=== PATIENT | female | born 1950 | race Two or more races ===

== ENCOUNTER 2016-11-15 11:07 | Day surgery (SDC) | payer MEDICARE, OTHER ==
[~2016-11-15] VITALS: Ht 152.4 cm; Wt 88.4 kg
[2016-11-15] MEDS ORDERED: NPH SQ (12:39)
[2016-11-15] MEDS ORDERED: LABE100T39 PO (12:39)
[2016-11-15] MEDS ORDERED: HYDR-3671 PO (12:39)
[2016-11-15] MEDS ORDERED: LOSA1TAB21 PO (12:39)
[2016-11-15] MEDS ORDERED: LORA1TAB PO (12:39)
[2016-11-15] MEDS ORDERED: OMEP20CA16 PO (12:39)
[2016-11-15] MEDS ORDERED: [UNRECOGNIZED DRUG - CODE] MC (12:39)
[2016-11-15] MEDS ORDERED: SMV40T PO (12:39)
[2016-11-15 13:26] VITALS: BP 193/81; PULSE 60; RESP 13
[2016-11-15 13:40] LABS: POTASSIUM 4.8 mmol/L (3.5-5.1)
[2016-11-15 13:43] LABS: CREATININE 6.65 mg/dl (0.44-1.00)
[2016-11-15 13:44] LABS: CALCIUM 9.8 mg/dl (8.4-10.2)
[2016-11-15] MEDS ORDERED: PROPOFOL 20 ML ONE ×2 (14:01→14:41)
[2016-11-15] MEDS ORDERED: MIDAZOLAM 1 MG/ML 2 ML INJ ONE (14:01)
[2016-11-15] MEDS ORDERED: LIDOCAINE 2% (SDV) 5 ML INJ ONE (14:01)
[2016-11-15 15:04] VITALS: BP 147/66; PULSE 59; RESP 18
--- NOTE | 2016-11-15 15:24 | GILP ---
DATE OF PROCEDURE: 11/15/2016 NAME OF PROCEDURES: Colonoscopy and biopsy. SURGEON: Misty Cifuentes MD PREOPERATIVE DIAGNOSES: 1. Change in bowel habit. 2. Screening colonoscopy. POSTOPERATIVE DIAGNOSES: 1. Colonoscopy all the way to the cecum. 2. Three small polyps, 2 from the transverse colon and one from the sigmoid colon were removed usin g the biopsy forceps. 3. Diverticulosis of the colon. 4. Internal hemorrhoids. INDICATION FOR THE PROCEDURE: Ms. Yue Johnson is a 66-year-old female patient who notice d a change in the bowel habit. She never had screening colonoscopy. The procedure and possible complications are well explained to the patient. She understood and cons ented to the procedure. DESCRIPTION OF PROCEDURE: Under the influence of anesthesia, the colonoscope was carefully introduc ed in the rectum and under direct vision, it was advanced all the way to the cecum. FINDINGS: The patient had 3 colon polyps, 2 in the transverse colon and one in the sigmoid colon an d they were removed using the biopsy forceps. The patient was noted to have diverticulosis of the c olon and internal hemorrhoids. She tolerated the procedure very well and there was no complication from the procedure. At the end of the procedure, she was awake with stable vital signs and she was discharged home to the care of h er family. IMPRESSION: 1. Colonoscopy all the way to the cecum. 2. Three colon polyps, 2 from the transverse colon and one from the sigmoid colon were removed usin g the biopsy forceps. 3. Diverticulosis of the colon. 4. Internal hemorrhoids. PLAN: Await histopathology report. Followup colonoscopy in 5 years. Dictated By: MISTY MEIER/MONICA Conf#: [id number] DID#: [id number]
--- NOTE | 2016-11-20 18:08 | RADRPT ---
Vent Rate: 68 bpm RR Interval: 0 msec ME Interval: 162 msec QRS Duration: 82 msec QT Interval: 456 msec QTC Interval: 484 msec P-R-T [place]: 67 - 28 - 74 degrees Normal sinus rhythm Normal ECG Electronically Signed By: Ty Rodriguez [id number]
== END 2016-11-15 15:57 | disposition home or self-care (01) ==
LOC: GIL 11:07
PROVIDERS: ATTEND Internal Medicine Gastroenterology
DX: R19.4 Change in bowel habit (principal); D12.3 Benign neoplasm of transverse colon; D12.5 Benign neoplasm of sigmoid colon; K57.90 Diverticulosis of intestine, part unspecified, without perforation or abscess without bleeding; K64.8 Other hemorrhoids; E78.5 Hyperlipidemia, unspecified; E66.01 Morbid (severe) obesity due to excess calories; Z68.38 Body mass index [BMI] 38.0-38.9, adult; I10 Essential (primary) hypertension; E11.9 Type 2 diabetes mellitus without complications
CPT/HCPCS: 45380; 80048; 93005; J2250; 88305

== ENCOUNTER 2018-11-06 07:22 | Observation (INO) | payer MEDICARE, OTHER ==
[~2018-11-06] VITALS: Ht 160 cm; Wt 90.8 kg
[2018-11-06] VITALS (28 sets, daily range): BP systolic 66–131; BP diastolic 30–80; PULSE 85–96; RESP 16–28; Ht 160 cm; Wt 90.8 kg
[~2018-11-06 07:22] MED LIST: CEFAZOLIN 2 GM/50 ML (PMX) 50 ML IVPB ONE; HYDR-3671 PO; LABE100T39 PO; LORA1TAB PO; LOSA1TAB28 PO; NPH SQ; OMEP20CA16 PO; SIMV40TA3 PO; SOD CHLORIDE 0.9% 1,000 ML IV SCH; [UNRECOGNIZED DRUG - CODE] MC
[2018-11-06] MEDS ORDERED: hydrALAzine 20 MG INJ IV ONE (08:30)
[2018-11-06] MEDS ORDERED: BUME2TAB2 PO ×2 (10:17→10:19)
[2018-11-06] MEDS ORDERED: CARV6.2579 PO (10:17)
[2018-11-06] MEDS ORDERED: SEVE0.8P PO (10:17)
[2018-11-06] MEDS ORDERED: HYDR100T25 PO (10:23)
[2018-11-06] MEDS ORDERED: LORA1TAB PO (10:25)
[2018-11-06] MEDS ORDERED: LOSA100T15 PO (10:25)
[2018-11-06] MEDS ORDERED: INSU100V3 IJ (10:26)
[2018-11-06] MEDS ORDERED: NPH,100V SQ (10:26)
[2018-11-06] MEDS ORDERED: AMLO5TAB4 PO (10:27)
--- NOTE | 2018-11-06 12:05 | PREAC ---
Date/Time of Note Date/Time of Note DATE: 11/06/18 TIME: 12:02 Anesthesia Eval and Record Evaluation Time Pre-Procedure Interview DATE: 11/06/18 TIME: 12:02 Age 68 Sex female NPO: 8 hrs Preoperative diagnosis Right breast CA Planned procedure Needle localized right partial mastectomy and sentinel lymph node biopsy Past Medical History Past Medical History: Includes Cardio: HTN Endo: Diabetes Renal: ESRD on dialysis, HD last: (11/05) GI: Morbid obesity Surgery & Anesthesia Issues No known issue Meds Anticoagulation: No Beta Abdoulaye within 24 hr: Yes Reported Medications Amlodipine Besylate* (Norvasc*) 5 Mg Tablet, 5 MG PO DAILY, TAB 11/06/18 Insulin NPH Human Isophane (Humulin N) 100 Unit/1 Ml Vial, 24 UNIT SQ BID, VIAL 11/06/18 Insulin Regular, Human (Humulin R) 100 Unit/1 Ml Vial, 14 UNIT IJ AT NOON, VIAL 11/06/18 Losartan Potassium* (Losartan Potassium*) 100 Mg Tablet, 100 MG PO BID, TAB 11/06/18 Lorazepam* (Lorazepam*) 1 Mg Tablet, 2 MG PO QHS PRN for ANXIETY, #30 TAB 11/06/18 Hydralazine Hcl* (Hydralazine Hcl*) 100 Mg Tablet, 100 MG PO Q8, #90 TAB 11/06/18 Bumetanide* (Bumetanide*) 2 Mg Tablet, 2 MG PO DAILY, TAB ON NON DIALYSIS DAYS 11/06/18 Carvedilol* (Carvedilol*) 6.25 Mg Tablet, 6.25 MG PO BID, #60 TAB 11/06/18 Sevelamer Carbonate* (Renvela*) 0.8 Gm Powd.pack, 800-1600 MG PO WITH MEALS, PACKET 11/06/18 Simvastatin (Simvastatin) 40 Mg Tablet, 40 MG PO DAILY, #30 TAB 11/15/16 Discontinued Reported Medications Bumetanide* (Bumetanide*) 2 Mg Tablet, 2 MG PO DAILY, TAB 11/06/18 Omeprazole* (Omeprazole*) 20 Mg Capsule.dr, 20 MG PO DAILY, #30 CAP 11/15/16 Losartan-Hydrochlorothiazide (Losartan-HCTZ) 100-12.5 Mg Tab, 1 TAB PO DAILY, TAB 11/15/16 Labetalol Hcl (Labetalol Hcl) 100 Mg Tab, 100 MG PO BID, TAB 11/15/16 Furosemide (Furosemide) 1 Gm Powder, 1 GM MC 11/15/16 Insulin Human Nph (Novolin-N) 100 Units/Ml Susp, 0 SQ 11/15/16 Hydralazine Hcl* (Hydralazine Hcl*) 25 Mg Tab, 25 MG PO Q8, #90 TAB 11/15/16 Lorazepam* (Lorazepam*) 1 Mg Tablet, 1 MG PO Q6 PRN for ANXIETY, #60 TAB 11/15/16 Current Medications Sodium Chloride 1,000 ml @ 75 mls/hr [id number] IV Last administered on 11/06/18at 06:00; Admin Dose 75 MLS/HR; Start 11/06/18 at 06:00; Stop 11/06/18 at 19:19 Meds reviewed: Yes Allergies Coded Allergies: No Known Allergy (Unverified , 11/06/18) Allergies Reviewed: Yes Labs/Studies Labs Reviewed: Reviewed by anesthesiologist Result Diagram: 11/06/18 1100 Laboratory Tests 11/06/18 11:00 test: N/A Pre-procedure Exam Last vitals Vital Signs Date Temp Pulse Resp B/P (MAP) Pulse Ox O2 O2 Flow FiO2 Time Delivery Rate 11/06/18 97.4 85 18 111/53 100 Room Air 10:51 (72) Airway: Adequate mouth opening Mallampati: Mallampati II Teeth: Normal Lung: Normal Heart: Normal ASA Physical Status ASA physical status: 3 Emergency: None Planned Anesthetic General/MAC: LMA Planned Pain Management Parenteral pain med Pre-operative Attestations Prior to commencing anesthesia and surgery, the patient was re-evaluated, there was verification of: *The patient's identity *The results of appropriate recent lab work and preoperative vital signs *The above evaluation not changing prior to induction *Anesthetic plan, risk benefits, alternative and complications discussed with patient/family; questions answered; patient/family understands, accepts and wishes to proceed. ALFONSO ELI MD Nov 06, 2018 12:05
[2018-11-06] MEDS ORDERED: LIDOCAINE 2% (SDV) 5 ML INJ ONE (12:19)
[2018-11-06] MEDS ORDERED: CEFAZOLIN 1 GM INJ ONE (12:19)
[2018-11-06] MEDS ORDERED: MEPERIDINE 100 MG INJ ONE (12:19)
[2018-11-06] MEDS ORDERED: PROPOFOL 20 ML ONE (12:19)
[2018-11-06] MEDS ORDERED: ONDANSETRON 4 MG INJ ONE (12:22)
[2018-11-06] MEDS ORDERED: METOCLOPRAMIDE 10 MG INJ ONE (12:22)
[2018-11-06] MEDS ORDERED: ISOSULFAN BLUE 1% 5 ML INJ SC ONE (12:24)
[2018-11-06] MEDS ORDERED: EPHEDrine 50 MG INJ ONE ×3 (12:48→14:12)
[2018-11-06] MEDS ORDERED: HYDROmorphONE 1 MG/5 ML IV SYRINGE IV PRN ×3 (13:30)
[2018-11-06] MEDS ORDERED: ONDANSETRON 4 MG INJ IV PRN (13:30)
[2018-11-06] MEDS ORDERED: FENTAnyl 50 MCG/ML VIAL IV PRN ×3 (13:30)
[2018-11-06] MEDS ORDERED: MEPERIDINE 25 MG INJ IV PRN (13:30)
[2018-11-06] MEDS ORDERED: LABETALOL HCL 20MG INJ IV PRN (13:30)
[2018-11-06] MEDS ORDERED: DIPHENHYDRAMINE 50 MG INJ IV PRN (13:30)
[2018-11-06] MEDS ORDERED: EPHEDrine SULFATE 50 MG/5 ML SYG IV PRN (13:30)
[2018-11-06] MEDS ORDERED: METOCLOPRAMIDE 10 MG INJ IV PRN (13:30)
[2018-11-06] MEDS ORDERED: hydrALAzine 20 MG INJ IV PRN (13:30)
[2018-11-06] MEDS ORDERED: OXYCODONE/ACETAMINOPHEN (5/325) TAB PO PRN ×2 (13:30)
[2018-11-06] MEDS ORDERED: MIDAZOLAM 1 MG/ML 2 ML INJ IV PRN (13:30)
[2018-11-06] MEDS ORDERED: D5W-0.45 NACL + KCL 20 MEQ 1,000 ML IV SCH (13:45)
--- NOTE | 2018-11-06 13:45 | SIPON ---
Date/Time of Note Date/Time of Note DATE: 11/06/18 TIME: 13:43 Operative Report Preoperative Diagnosis Invasive cancer right breast Postoperative Diagnosis Same Operation/Procedure Performed Needle directed right partial mastectomy and axillary dissection utilizing sentinel lymph node technique Surgeon see signature line learning and development assistant Dr Hammonds Anesthesia: general Estimated blood loss: 10 - 50 ml's Transfusion Required none Specimen Right partial mastectomy specimen and sentinel lymph node with additional axillary nodes Grafts/Implants none Complications none DANTE GOMES MD Nov 06, 2018 13:44
--- NOTE | 2018-11-06 13:48 | OPR ---
DATE OF OPERATION: 11/06/2018 PREOPERATIVE DIAGNOSIS: Invasive cancer, right breast. POSTOPERATIVE DIAGNOSIS: Invasive cancer, right breast. PROCEDURE: Right needle-directed partial mastectomy and axillary dissection utilizing sentinel lymph node technique. ANESTHESIA: General. ANESTHESIOLOGIST: Chintan Nolan MD SURGEON: Edison Geller MD COTTON EXPERT: Nick Hammonds MD INDICATIONS FOR PROCEDURE: The patient is a 68-year-old female who underwent screening mammography a nd was found to have approximately 4 cm area of very suspicious microcalcifications in her right lili st. Subsequent core biopsy revealed invasive ductal carcinoma. She was counseled as to the need for definitive surgical therapy. She consented and was scheduled for surgery. DESCRIPTION OF PROCEDURE: On the morning of surgery, the patient presented to [facility] where she underwent localization of the lesion performed by attending radiolog ist, Dr. Damon Morales. Subsequently, she was brought to the operating theater, placed under gener al anesthesia. The right breast and axillary region was prepped and draped in usual sterile fashion. Approximately 4 mL of 1% Lymphazurin blue dye were then injected peritumorally. The breast was gen tly massaged for approximately 12 minutes. Subsequently, a 4 cm incision was made in the right axill víctor hairline. Subcutaneous tissue was dissected with cautery down through the clavipectoral fascia. It was difficult to identify a definite dye-stained lymphatic; however there was a somewhat enlarged lymph node that appeared to have a small amount of dye entering it. This lymph node and several oth er lymph nodes in the area were then resected using LigaSure device. Intraoperative analysis perform ed by attending pathologist, Dr. Pierre Cervantes, did not reveal evidence of metastatic disease; ther efore no further nodes were taken. The wound was irrigated. Minimal bleeding was controlled with ca utery. A #10 Italian Vaibhav-Hadley drain was then brought through the right mid axillary line, cut to size and laid within the axilla. It was secured in place with 2-0 nylon suture in the standard fash ion and the incision was then reapproximated with a 4-0 Vicryl suture in subcuticular fashion. Atten tion was then directed to performing the partial mastectomy. Localization wire was at approximately the 2 o'clock location approximately 2 to 3 cm from nipple areolar border. A curvilinear incision wa s made in this region. Subcutaneous tissue was dissected with cautery. Skin edges were elevated wit h skin hooks and wide circumferential dissection of the tissue associated with the wire took place do wn to the pectoralis major muscle, taking great care to ensure adequate margin. Specimen was then tr ansected off the dome pectoralis major muscle and oriented and sent for radiographic confirmation of capture. Capture was confirmed. The specimen was then sent for permanent pathologic analysis. The wound was irrigated. Minimal bleeding was controlled with cautery. Decision was made due to the lar ge wound defect to place a Vaibhav-Hadley drain within the wound cavity. A second drain was brought t hrough the right mid axillary line, cut to size and laid within the wound cavity. The drain was secu red in place with 2-0 nylon suture in the standard fashion. The skin was then reapproximated with 4- 0 Vicryl sutures in interrupted deep dermal fashion, followed by final skin approximation with 5-0 PD S sutures in subcuticular fashion. Dermabond was then applied to both incisions. The patient tolera lyle procedure well. The estimated blood loss was 40 mL. There were no complications and the patient was transported in stable condition to the recovery room where circumferential compression dressing was applied. Dictated By: EDISON MAYORGA/MONICA Conf#: [id number] DID#: [id number]
[2018-11-06] MEDS ORDERED: morphine 2 MG INJ IV PRN (14:00)
[2018-11-06] MEDS ORDERED: ACETAMINOPHEN 1000MG/100ML IV 100 ML IVPB PRN (14:00)
--- NOTE | 2018-11-06 15:32 | PAC ---
Date/Time of Note Date/Time of Note DATE: 11/06/18 TIME: 15:32 Post-Anesthesia Notes Post-Anesthesia Note Last documented vital signs Vital Signs Date Temp Pulse Resp B/P (MAP) Pulse Ox O2 O2 Flow FiO2 Time Delivery Rate 11/06/18 92 16 131/66 98 Nasal 14:46 (87) Cannula 11/06/18 98.8 13:57 11/06/18 6.0 13:55 Activity: WNL Respiratory function: WNL Cardiovascular function: WNL Mental status: Baseline Pain reasonably controlled: Yes Hydration appropriate: Yes Nausea/Vomiting absent: Yes ALFONSO ELI MD Nov 06, 2018 15:32
--- NOTE | 2018-11-06 17:51 | HP ---
Date/Time of Note Date/Time of Note DATE: 11/06/18 TIME: 17:39 Assessment/Plan VTE Prophylaxis SCD applied (from Nsg): Yes Pharmacological prophylaxis: NA/contraindicated Pharm contraindication: surgical contra Lines/Catheters IV Catheter Type (from Nrsg): Peripheral IV Assessment/Plan Assessment/Plan -Invasive cancer, right breast. S/p right needle-directed partial mastectomy and axillary dissection utilizing sentinel lymph node technique by Dr Geller on 11/06/18. Continue gentle head rehydration, [place] and morphine as needed for pain and Zofran as needed for nausea. -Hemodialysis dependent end-stage renal disease, Dr. Vidal is asked to see patient in nephrology consultation. -Diabetes mellitus type 2, Lantus and NovoLog. -CHF, continue Coreg and Bumex. -Hypertension, patient was hypotensive after surgery, blood pressure is stable now, will hold on home BP meds for now. Will resume patient's home BP meds if needed. Will obtain CBC and BMP tomorrow. Further recommendations based on clinical course. Plan of care discussed with Dr. Carbajal. Result Diagram: 11/06/18 1100 Results 24hrs Laboratory Tests Test 11/06/18 10:31 11/06/18 11:00 11/06/18 14:23 Bedside Glucose 189 175 Potassium Level 4.2 HPI/ROS Admit Date/Time Admit Date/Time Nov 06, 2018 at 13:46 Hx of Present Illness The patient is a 68-year-old female with hypertension, CHF, hyperlipidemia, diabetes mellitus type 2, hemodialysis dependent end-stage renal disease, with hemodialysis on Saturday and Saturday. Patient had her last hemodialysis on Saturday. Patient underwent screening mammography and was found to have suspicious microcalcifications in her right breast. Patient underwent core biopsy which revealed invasive ductal carcinoma. Patient was evaluated by Dr. Geller in general surgery consultation. Patient was brought to the hospital and underwent right needle-directed partial mastectomy and axillary dissection utilizing sentinel lymph node technique. Patient was noted to have hypotension while in the recovery room which improved with IV fluids. Patient multiple comorbidities patient will be admitted for further evaluation and management and pain control to medical surgical floor. ROS 12 point review of system is negative except for what mentioned in HPI PMH/Family/Social Past Medical History Medical History: diabetes, hypertension, renal disease Medications Current Medications Sodium Chloride 1,000 ml @ 75 mls/hr [id number] IV Last administered on 11/06/18at 06:00; Admin Dose 75 MLS/HR; Start 11/06/18 at 06:00; Stop 11/06/18 at 19:19 Hydromorphone HCl (Dilaudid) 0.2 mg PACU PRN IV MILD PAIN 1-3; Start 11/06/18 at 13:30; Stop 11/06/18 at 19:00 Hydromorphone HCl (Dilaudid) 0.4 mg PACU PRN IV MOD PAIN 4-6; Start 11/06/18 at 13:30; Stop 11/06/18 at 19:00 Hydromorphone HCl (Dilaudid) 0.6 mg PACU PRN IV SEVERE PAIN 7-10; Start 11/06/18 at 13:30; Stop 11/06/18 at 19:00 Fentanyl (Sublimaze) 25 mcg PACU ORDER PRN IV MILD PAIN 1-3; Start 11/06/18 at 13:30; Stop 11/06/18 at 19:00 Fentanyl (Sublimaze) 50 mcg PACU ORDER PRN IV MOD PAIN 4-6; Start 11/06/18 at 13:30; Stop 11/06/18 at 19:00 Fentanyl (Sublimaze) 75 mcg PACU ORDER PRN IV SEVERE PAIN 7-10; Start 11/06/18 at 13:30; Stop 11/06/18 at 19:00 Oxycodone/ Acetaminophen (Percocet (5/ 325)) 1 tab PACU ORDER PRN PO .PAIN 1-5; Start 11/06/18 at 13:30; Stop 11/06/18 at 19:00 Oxycodone/ Acetaminophen (Percocet (5/ 325)) 2 tab PACU ORDER PRN PO .PAIN 6-10; Start 11/06/18 at 13:30; Stop 11/06/18 at 19:00 Ondansetron HCl (Zofran Inj) 4 mg PACU ORDER PRN IV NAUSEA/VOMITING; Start 11/06/18 at 13:30; Stop 11/06/18 at 19:00 Metoclopramide HCl (Reglan) 10 mg PACU ORDER PRN IV NAUSEA/VOMITING; Start 11/06/18 at 13:30; Stop 11/06/18 at 19:00 Labetalol HCl (Labetalol) 5 mg PACU ORDER PRN IV HIGH BLOOD PRESSURE; Start 11/06/18 at 13:30; Stop 11/06/18 at 19:00 Hydralazine HCl (Apresoline) 5 mg PACU ORDER PRN IV HIGH BLOOD PRESSURE; Start 11/06/18 at 13:30; Stop 11/06/18 at 19:00 Ephedrine Sulfate 5 mg PACU ORDER PRN IV BLOOD PRESSURE SUPPORT; Start 11/06/18 at 13:30; Stop 11/06/18 at 19:00 Meperidine HCl (Demerol) 25 mg PACU ORDER PRN IV .RIGORS; Start 11/06/18 at 13:30; Stop 11/06/18 at 19:00 Diphenhydramine HCl (Benadryl) 25 mg PACU ORDER PRN IV .PRURITUS; Start 11/06/18 at 13:30; Stop 11/06/18 at 19:00 Midazolam HCl (Versed) 0.5 mg PACU ORDER PRN IV .ANXIETY; Start 11/06/18 at 13:30; Stop 11/06/18 at 19:00 Ondansetron HCl (Zofran Inj) 4 mg Q6H PRN IV NAUSEA AND/OR VOMITING; Start 11/06/18 at 14:00 Potassium Chloride/Dextrose/ Sod Cl 1,000 ml @ 125 mls/hr Q8H IV ; Start 11/06/18 at 13:45 Morphine Sulfate (morphine) 2 mg Q1H PRN IV PAIN; Start 11/06/18 at 14:00 Acetaminophen 100 ml @ 400 mls/hr Q6H PRN IVPB PAIN; Start 11/06/18 at 14:00; Stop 11/07/18 at 13:59 Coded Allergies: No Known Allergy (Unverified , 11/06/18) Past Surgical History Past Surgical Hx: other (Status post laparoscopic cholecystectomy, status post left upper extremity AV fistula creation) Family History Significant Family History: other (Gastric cancer in patient's mother) Social History Alcohol Use: none Smoking Status: Never smoker Drug Use: none Exam/Review of Systems Vital Signs Vitals Vital Signs Date Temp Pulse Resp B/P (MAP) Pulse Ox O2 O2 Flow FiO2 Time Delivery Rate 11/06/18 97.6 18 112/80 99 Nasal 15:16 (91) Cannula 11/06/18 92 15:11 11/06/18 6.0 13:55 Intake and Output 11/05/18 11/05/18 11/06/18 1515:00 23:00 07:00 OutputOutput Total 30 ml BalanceBalance -30 ml Exam Constitutional: alert, oriented Head: normocephalic Neck: supple Respiratory: clear to auscultation Cardiovascular: nl pulses Gastrointestinal: soft, non-tender Musculoskeletal: nl extremities to inspection Extremities: normal pulses, other (Left upper extremity AV fistula) Neurological: nl mental status Skin: nl turgor, other (Status post right partial mastectomy, axillary LÓPEZ x2) FRANCES GUTIERREZ Nov 06, 2018 17:49
[2018-11-06] MEDS ORDERED: SOD CHLORIDE 0.45% 1,000 ML IV SCH (18:10)
[2018-11-06] MEDS: ONDANSETRON 4 MG INJ IV PRN (18:22)
[2018-11-06] MEDS ORDERED: HYDROCODONE/APAP (5/325) TAB PO PRN (18:30)
[2018-11-06] MEDS ORDERED: ZOLPIDEM 5 MG TAB PO PRN (18:30)
[2018-11-06] MEDS ORDERED: GLUCAGON 1 MG INJ IM PRN (18:30)
[2018-11-06] MEDS ORDERED: ACETAMINOPHEN 325 MG TAB PO PRN (18:30)
[2018-11-06] MEDS ORDERED: GLUCOSE GEL 15 GRAM TUBE PO PRN ×2 (18:30)
[2018-11-06] MEDS ORDERED: BISACODYL (EC) 5 MG TAB PO PRN (18:30)
[2018-11-06] MEDS ORDERED: GLUCOSE GEL 15 GRAM TUBE BUCCAL PRN (18:30)
[2018-11-06] MEDS ORDERED: DEXTROSE 50% 50 ML SYRINGE IV PRN ×2 (18:30)
[2018-11-06] MEDS ORDERED: DOCUSATE SODIUM 100 MG CAP PO PRN (18:30)
[2018-11-06] MEDS: INSULIN ASPART [NOVOLOG] 3 ML PEN SC SCH ×3 (19:06→20:19)
[2018-11-06] MEDS: SOD CHLORIDE 0.45% 1,000 ML IV SCH (19:08)
[2018-11-06] MEDS: SEVELAMER CARBONATE 0.8 GM PKT PO SCH (19:09)
[2018-11-06] MEDS: FAMOTIDINE 20 MG TAB PO SCH (20:16)
[2018-11-06] MEDS: INSULIN GLARGINE [LANTus] (100 UNITS/ML) SYG SC SCH (20:20)
[2018-11-07] VITALS (19 sets, daily range): BP systolic 88–157; BP diastolic 40–89; PULSE 60–78; RESP 18–20
[2018-11-07] MEDS: ACCU-CHEK XX SCH ×2 (01:16)
[2018-11-07] MEDS: INSULIN ASPART [NOVOLOG] 3 ML PEN SC SCH ×6 (08:42→20:30)
[2018-11-07] MEDS: SEVELAMER CARBONATE 0.8 GM PKT PO SCH ×3 (08:47→20:23)
[2018-11-07] MEDS: FAMOTIDINE 20 MG TAB PO SCH ×2 (08:48→20:28)
--- NOTE | 2018-11-07 09:28 | CONS ---
DATE OF ADMISSION: 11/06/2018 DATE OF CONSULTATION: 11/07/2018 TYPE OF CONSULTATION: Nephrology. REASON FOR CONSULTATION: End-stage renal disease. REQUESTING PHYSICIAN CONSULTATION: Dr. Foote. HISTORY OF PRESENT ILLNESS: This is a 68-year-old female with a past medical history of end-stage re nal disease, history of hypertension, congestive heart failure, dyslipidemia, diabetes, who presents to [facility] to undergo a partial mastectomy. The patient was a recent diagnosis of invasive ductal carcinoma of the right breast in outpatient setting. The patient has also subsequ ently admitted. She underwent a right needle-directed partial mastectomy with axillary dissection of sentinel lymph node on 11/06/2018. Following the procedure, the patient was admitted to the [facility] for evaluation and monitor. In terms of patient's renal history, the patient has underlying end-stage renal disease. Last hemodialysis was on Saturday, access AV fistula. The patient does n ot know her steel tester's name. PAST MEDICAL HISTORY: Stated above, history of congestive heart failure, history of end-stage renal disease, diabetes, hypertension, anemia. PAST SURGICAL HISTORY: Status post AV fistula placement. FAMILY HISTORY: No family history of kidney disease. SOCIAL HISTORY: She does not drink, smoke or do drugs. MEDICATIONS: The patient's medications have been reviewed. ALLERGIES: NO KNOWN DRUG ALLERGIES. REVIEW OF SYSTEMS: A 14-point review of systems was conducted. Pertinent positives stated in HPI, o therwise negative. PHYSICAL EXAMINATION: VITAL SIGNS: Blood pressure is 126/86, respirations 18, pulse 73, temperature 97.5. HEENT: Head is normocephalic. NECK: Supple. HEART: Regular rate. LUNGS: Show diminished breath sounds at the base. ABDOMEN: Soft, nontender to palpation without rebound or guarding. EXTREMITIES: Negative for clubbing, cyanosis, no edema. DERMATOLOGIC: No rashes. MUSCULOSKELETAL: No joint effusion. NEUROLOGIC: No focal deficits. MEDICATIONS: Reviewed. LABORATORY DATA: Shows white count 6.7, hemoglobin 9.4, platelet count is 158. Sodium 142, potassiu m 4.6, BUN 41, creatinine 6.94, hemoglobin A1c 6.3. ASSESSMENT AND PLAN: This is a 68-year-old female presenting with: 1. End-stage renal disease. The patient's access is left AV fistula. Plan is for hemodialysis toandrew antunez. We will dialyze 3 hours 2k bath, calcium 2.5, ultrafiltrate as tolerated. 2. Anemia. Monitor hemoglobin and hematocrit levels. We will give Epogen as needed. 3. Mineral bone disorder, monitor calcium and phosphorus levels. 4. Right breast carcinoma. The patient is status post partial mastectomy with axillary dissection o f the sentinel lymph node. We will continue to monitor, continue pain control. Follow up with surge ry. 5. Diabetes. Continue current insulin regimen. 6. Congestive heart failure. Continue medical management. Continue ultrafiltration dialysis. 7. Hypertension. Continue current blood pressure regimen. Thank you, Dr. Foote, for this interesting consult. It will be a pleasure to follow patient with you throughout the hospital course. Dictated By: TRINITY CHRISTOPHER DO NR/NTS Conf#: [id number] DID#: [id number] CC: SAWYER FOOTE MD; DANTE GOMES MD;*EndCC*
[2018-11-07] MEDS: ONDANSETRON 4 MG INJ IV PRN ×2 (09:53→20:29)
[2018-11-07] MEDS: BUMETANIDE 1 MG TAB PO SCH (10:30)
[2018-11-07] MEDS: SOD CHLORIDE 0.45% 1,000 ML IV SCH (11:10)
--- NOTE | 2018-11-07 11:52 | PN ---
DATE: 11/07/2018 Postop day #1 status post right breast needle loc. partial mastectomy and axillary dissection. SUBJECTIVE: The patient has been complaining of nausea and vomiting. Also, has some more pain in the right axillary area. OBJECTIVE: Awake, alert and oriented. VITAL SIGNS: Temperature maximum today 98.6, heart rate 78, blood pressure 165/72, saturation 95% room air. LABORATORY DATA: I and O's. Patient is on chronic dialysis because of the end- stage renal disease. There are 2 Vaibhav-[address] in place[address] They have drained from time of operation till today morning 25 and 50 mL, respectively, total 75 mL, both of them right now the fluid which has accumulated in the bags of Vaibhav-Hadley drains is serosanguineous. The dressing wrapped around the chest is not too tight at all. The patient has been seen by lockstitch machine operator in consultation. They are planning to do hemodialysis today, but today's lab results shows that the potassium is 4.6 and sodium 143, BUN 41, creatinine 6.94, hemoglobin A1c 6.3. WBC 6700 with 55% segmented, hemoglobin 9.4, hematocrit 28.5. HEART: Regular. LUNGS: Clear. ABDOMEN: Soft. PLAN: The patient will receive hemodialysis today and then from surgical point of view, the patient can be discharged any time, which is suitable and appropriate with the internal medicine and nephrology colleagues. Dictated By: OCTAVIA ZAMUDIO/MONICA Conf#: [id number] DID#: [id number]
--- NOTE | 2018-11-07 11:58 | CONS ---
Assessment/Plan Assessment/Plan Assessment/Plan 1.s/p Right mastectomy for invasive ductal breast ca 2.ESRD on HD, MWF 3.Htn 4.Anemia sec to Ckd 5.AODM p: -HD today -Monitor lytes -Monitor bp -Further recs per surgeon Consultation Date/Type/Reason Admit Date/Time Nov 06, 2018 at 13:46 Type of Consult Nephrology Date/Time of Note DATE: 11/07/18 TIME: 11:53 Hx of Present Illness S/P Right mastectomy, ESRD on HD Constitutional: No no complaints, No improved, No chills, No diaphoresis, No disoriented, No febrile, No poor po, No requiring IVF, No requiring O2, No other Eyes: No no complaints, No pain, No discharge, No redness, No visual change, No other ENT: No no complaints, No bleeding, No pain, No congestion, No discharge, No dysphagia, No sore throat, No other Respiratory: No no complaints, No pain, No cough, No pleuritic pain, No shortness of breath, No sputum, No wheezing, No other Cardiovascular: No no complaints, No chest pain, No edema, No lightheadedness, No orthopenea, No palpitations, No paroxysmal nocturnal dyspnea, No other Gastrointestinal: No no complaints, No pain, No blood, No constipation, No decreased appetite, No diarrhea, No flatus, No nausea, No passing stool, No vomiting, No other Genitourinary: No no complaints, No bleeding, No dysuria, No discharge, No flank pain, No hematuria, No other Musculoskeletal: No no complaints, No back pain, No bone/joint pain, No neck pain, No restricted range of motion, No swelling, No other Skin: No no complaints, No bruising, No erythema, No laceration, No pruritis, No rash, No skin lesions, No other Neurologic: No no complaints, No confusion, No dizziness, No focal-weakness, No headache, No syncope, No seizure, No other Endocrine: No no complaints, No polyuria, No polydypsia, No dry skin, No temp intolerance, No other Lymphatic: No no complaints, No adenopathy, No tender nodes, No lymphadema, No other Psychological: No no complaints, No nl mood/affect, No anxiety, No confusion, No depression, No suicidal, No other Immunologic: No no complaints, No immunodeficiency, No pruritis, No rhinitis, No urticaria, No other Past Medical History Medical History Nephrology: hypertension, renal disease Home Meds Reported Medications Amlodipine Besylate* (Norvasc*) 5 Mg Tablet, 5 MG PO DAILY, TAB 11/06/18 Insulin NPH Human Isophane (Humulin N) 100 Unit/1 Ml Vial, 24 UNIT SQ BID, VIAL 11/06/18 Insulin Regular, Human (Humulin R) 100 Unit/1 Ml Vial, 14 UNIT IJ AT NOON, VIAL 11/06/18 Losartan Potassium* (Losartan Potassium*) 100 Mg Tablet, 100 MG PO BID, TAB 11/06/18 Lorazepam* (Lorazepam*) 1 Mg Tablet, 2 MG PO QHS PRN for ANXIETY, #30 TAB 11/06/18 Hydralazine Hcl* (Hydralazine Hcl*) 100 Mg Tablet, 100 MG PO Q8, #90 TAB 11/06/18 Bumetanide* (Bumetanide*) 2 Mg Tablet, 2 MG PO DAILY, TAB ON NON DIALYSIS DAYS 11/06/18 Carvedilol* (Carvedilol*) 6.25 Mg Tablet, 6.25 MG PO BID, #60 TAB 11/06/18 Sevelamer Carbonate* (Renvela*) 0.8 Gm Powd.pack, 800-1600 MG PO WITH MEALS, PACKET 11/06/18 Simvastatin (Simvastatin) 40 Mg Tablet, 40 MG PO DAILY, #30 TAB 11/15/16 Discontinued Reported Medications Bumetanide* (Bumetanide*) 2 Mg Tablet, 2 MG PO DAILY, TAB 11/06/18 Omeprazole* (Omeprazole*) 20 Mg Capsule.dr, 20 MG PO DAILY, #30 CAP 11/15/16 Losartan-Hydrochlorothiazide (Losartan-HCTZ) 100-12.5 Mg Tab, 1 TAB PO DAILY, TAB 11/15/16 Labetalol Hcl (Labetalol Hcl) 100 Mg Tab, 100 MG PO BID, TAB 11/15/16 Furosemide (Furosemide) 1 Gm Powder, 1 GM MC 11/15/16 Insulin Human Nph (Novolin-N) 100 Units/Ml Susp, 0 SQ 11/15/16 Hydralazine Hcl* (Hydralazine Hcl*) 25 Mg Tab, 25 MG PO Q8, #90 TAB 11/15/16 Lorazepam* (Lorazepam*) 1 Mg Tablet, 1 MG PO Q6 PRN for ANXIETY, #60 TAB 11/15/16 Medications Current Medications Ondansetron HCl (Zofran Inj) 4 mg Q6H PRN IV NAUSEA AND/OR VOMITING Last administered on 11/07/18 09:53; Admin Dose 4 MG; Start 11/06/18 at 14:00 Morphine Sulfate (morphine) 2 mg Q1H PRN IV PAIN; Start 11/06/18 at 14:00 Acetaminophen 100 ml @ 400 mls/hr Q6H PRN IVPB PAIN; Start 11/06/18 at 14:00; Stop 11/07/18 at 13:59 Carvedilol (Coreg) 6.25 mg BID PO Last administered on 11/07/18 08:49; Admin Dose 6.25 MG; Start 11/06/18 at 21:00 Sevelamer Carbonate (Renvela) 0.8 gm WITH MEALS PO Last administered on 08:47; Admin Dose 0.8 GM; Start 11/06/18 at 17:55 Bumetanide (Bumex) 2 mg DAILY PO ; Start 11/07/18 at 09:00 Diagnostic Test (Pha) (Accu-Chek) 1 ea 02 XX Last administered on 11/07/18 01:16; Admin Dose 1 EA; Start 11/07/18 at 02:00 Diagnostic Test (Pha) (Accu-Chek) 1 ea 02 XX ; Start 11/07/18 at 02:00 Insulin Glargine (Lantus) 27 units DAILY@2000 SC Last administered on 11/06/18 20:20; Admin Dose 27 UNITS; Start 11/06/18 at 20:00 Insulin Aspart (Novolog Insulin Pen) 9 unit WITH MEALS SC Last administered on 11/07/18 08:42; Admin Dose 9 UNIT; Start 11/06/18 at 17:55 Insulin Aspart (Novolog Insulin Pen) NOVOLOG *MILD* ALGORITHM WITH MEALS BEDTIME SC Last administered on 11/07/18 08:43; Admin Dose 1 UNIT; Start 11/06/18 at 17:55 Miscellaneous Information 1 ea NOTE XX ; Start 11/06/18 at 18:30 Glucose (Glutose) 15 gm Q15M PRN PO DECREASED GLUCOSE; Start 11/06/18 at 18:30 Glucose (Glutose) 22.5 gm Q15M PRN PO DECREASED GLUCOSE; Start 11/06/18 at 18:30 Dextrose (D50w Syringe) 25 ml Q15M PRN IV DECREASED GLUCOSE; Start 11/06/18 at 18:30 Dextrose (D50w Syringe) 50 ml Q15M PRN IV DECREASED GLUCOSE; Start 11/06/18 at 18:30 Glucagon (Glucagen) 1 mg Q15M PRN IM DECREASED GLUCOSE; Start 11/06/18 at 18:30 Glucose (Glutose) 15 gm Q15M PRN BUCCAL DECREASED GLUCOSE; Start 11/06/18 at 18:30 Ondansetron HCl (Zofran Inj) 4 mg Q6H PRN IV NAUSEA/VOMITING; Start 11/06/18 at 18:30 Acetaminophen (Tylenol Tab) 650 mg Q6H PRN PO .PAIN 1-3 OR TEMP Last administered on 11/06/18at 20:27; Admin Dose 650 MG; Start 11/06/18 at 18:30 Acetaminophen/ Hydrocodone Bitart ([place] (5/325)) 1 tab Q6H PRN PO .MOD PAIN 4- 6 Last administered on 11/07/18at 04:51; Admin Dose 1 TAB; Start 11/06/18 at 18:30 Docusate Sodium (Colace) 100 mg Q12H PRN PO .CONSTIPATION; Start 11/06/18 at 18:30 Bisacodyl (Dulcolax) 5 mg DAILY PRN PO .CONSTIPATION; Start 11/06/18 at 18:30 Zolpidem Tartrate (Ambien) 5 mg QHS PRN PO .INSOMNIA; Start 11/06/18 at 18:30 Famotidine (Pepcid) 20 mg Q12 PO Last administered on 11/07/18at 08:48; Admin Dose 20 MG; Start 11/06/18 at 21:00 Sodium Chloride 1,000 ml @ 60 mls/hr [id number] IV Last administered on 11/06/18at 19:08; Admin Dose 60 MLS/HR; Start 11/06/18 at 18:30 Allergies: Coded Allergies: No Known Allergy (Unverified , 11/06/18) Past Surgical History Past Surgical Hx: other (Status post laparoscopic cholecystectomy, status post left upper extremity AV fistula creation) Social History Alcohol Use: none Smoking Status: Never smoker Drug Use: none Exam/Review of Systems Vital Signs Vitals Vital Signs Date Temp Pulse Resp B/P (MAP) Pulse Ox O2 O2 Flow FiO2 Time Delivery Rate 11/07/18 97.5 73 18 126/86 95 Nasal 07:37 (99) Cannula 11/06/18 2.0 16:45 Intake and Output 11/06/18 11/06/18 11/07/18 1515:00 23:00 07:00 IntakeIntake Total 200 ml 350 ml 600 ml OutputOutput Total 10 ml 245 ml 270 ml BalanceBalance 190 ml 105 ml 330 ml Labs Result Diagram: 11/07/18 0434 11/07/18 0434 Results 24hrs Laboratory Tests Test 11/06/18 14:23 11/06/18 18:09 11/06/18 20:13 11/07/18 01:14 Bedside Glucose 175 190 209 150 Test 11/07/18 04:29 11/07/18 04:34 11/07/18 07:03 11/07/18 07:55 Hepatitis B Surface NEGATIVE Antigen White Blood Count 6.7 Red Blood Count 2.83 L Hemoglobin 9.4 L Hematocrit 28.5 L Mean Corpuscular 100.7 Volume Mean Corpuscular 33.2 H Hemoglobin Mean Corpuscular 33.0 Hemoglobin Concent Red Cell Distribution 15.0 H Width Platelet Count 158 Mean Platelet Volume 11.3 H Immature Granulocytes 0.400 % Neutrophils % 55.7 Lymphocytes % 32.4 Monocytes % 9.4 Eosinophils % 1.8 Basophils % 0.3 Nucleated Red Blood 0.3 H Cells % Immature Granulocytes 0.030 # Neutrophils # 3.7 Lymphocytes # 2.2 Monocytes # 0.6 Eosinophils # 0.1 Basophils # 0.0 Nucleated Red Blood 0.0 Cells # Sodium Level 142 Potassium Level 4.6 Chloride Level 99 Carbon Dioxide Level 24 Anion Gap 19 H Blood Urea Nitrogen 41 H Creatinine 6.94 H Est Glomerular 6 L Filtrat Rate mL/min Glucose Level 142 Hemoglobin A1c 6.3 H Calcium Level 9.2 Lab Scanned Report REFERENCE LAB Bedside Glucose 188 Test 11/07/18 08:41 Bedside Glucose 171 Medications Medications Current Medications Ondansetron HCl (Zofran Inj) 4 mg Q6H PRN IV NAUSEA AND/OR VOMITING Last administered on 11/07/18 09:53; Admin Dose 4 MG; Start 11/06/18 at 14:00 Morphine Sulfate (morphine) 2 mg Q1H PRN IV PAIN; Start 11/06/18 at 14:00 Acetaminophen 100 ml @ 400 mls/hr Q6H PRN IVPB PAIN; Start 11/06/18 at 14:00; Stop 11/07/18 at 13:59 Carvedilol (Coreg) 6.25 mg BID PO Last administered on 11/07/18 08:49; Admin Dose 6.25 MG; Start 11/06/18 at 21:00 Sevelamer Carbonate (Renvela) 0.8 gm WITH MEALS PO Last administered on 11/07/18 08:47; Admin Dose 0.8 GM; Start 11/06/18 at 17:55 Bumetanide (Bumex) 2 mg DAILY PO ; Start 11/07/18 at 09:00 Diagnostic Test (Pha) (Accu-Chek) 1 ea 02 XX Last administered on 11/07/18at 01:16; Admin Dose 1 EA; Start 11/07/18 at 02:00 Diagnostic Test (Pha) (Accu-Chek) 1 ea 02 XX ; Start 11/07/18 at 02:00 Insulin Glargine (Lantus) 27 units DAILY@2000 SC Last administered on 11/06/18 20:20; Admin Dose 27 UNITS; Start 11/06/18 at 20:00 Insulin Aspart (Novolog Insulin Pen) 9 unit WITH MEALS SC Last administered on 11/07/18 08:42; Admin Dose 9 UNIT; Start 11/06/18 at 17:55 Insulin Aspart (Novolog Insulin Pen) NOVOLOG *MILD* ALGORITHM WITH MEALS BEDTIME SC Last administered on 11/07/18 08:43; Admin Dose 1 UNIT; Start 11/06/18 at 17:55 Miscellaneous Information 1 ea NOTE XX ; Start 11/06/18 at 18:30 Glucose (Glutose) 15 gm Q15M PRN PO DECREASED GLUCOSE; Start 11/06/18 at 18:30 Glucose (Glutose) 22.5 gm Q15M PRN PO DECREASED GLUCOSE; Start 11/06/18 at 18:30 Dextrose (D50w Syringe) 25 ml Q15M PRN IV DECREASED GLUCOSE; Start 11/06/18 at 18:30 Dextrose (D50w Syringe) 50 ml Q15M PRN IV DECREASED GLUCOSE; Start 11/06/18 at 18:30 Glucagon (Glucagen) 1 mg Q15M PRN IM DECREASED GLUCOSE; Start 11/06/18 at 18:30 Glucose (Glutose) 15 gm Q15M PRN BUCCAL DECREASED GLUCOSE; Start 11/06/18 at 18: 30 Ondansetron HCl (Zofran Inj) 4 mg Q6H PRN IV NAUSEA/VOMITING; Start 11/06/18 at 18:30 Acetaminophen (Tylenol Tab) 650 mg Q6H PRN PO .PAIN 1-3 OR TEMP Last administered on 11/06/18at 20:27; Admin Dose 650 MG; Start 11/06/18 at 18:30 Acetaminophen/ Hydrocodone Bitart ([place] (5/325)) 1 tab Q6H PRN PO .MOD PAIN 4- 6 Last administered on 11/07/18 04:51; Admin Dose 1 TAB; Start 11/06/18 at 18:30 Docusate Sodium (Colace) 100 mg Q12H PRN PO .CONSTIPATION; Start 11/06/18 at 18:30 Bisacodyl (Dulcolax) 5 mg DAILY PRN PO .CONSTIPATION; Start 11/06/18 at 18:30 Zolpidem Tartrate (Ambien) 5 mg QHS PRN PO .INSOMNIA; Start 11/06/18 at 18:30 Famotidine (Pepcid) 20 mg Q12 PO Last administered on 11/07/18at 08:48; Admin Dose 20 MG; Start 11/06/18 at 21:00 Sodium Chloride 1,000 ml @ 60 mls/hr [id number] IV Last administered on 11/06/18at 19:08; Admin Dose 60 MLS/HR; Start 11/06/18 at 18:30 JUAN FRANCISCO UP MD Nov 07, 2018 11:58
[2018-11-07] MEDS ORDERED: SODIUM CHLORIDE 0.9% 1L BAG IV PRN (12:00)
[2018-11-07] MEDS ORDERED: AL HYDROX/MG HYDROX/SIMETH 30 ML CUP PO ONE (14:30)
[2018-11-07] MEDS ORDERED: ONDANSETRON 4 MG INJ IV ONE (15:00)
--- NOTE | 2018-11-07 15:55 | CONS ---
DATE OF ADMISSION: 11/06/2018 DATE OF CONSULTATION: 11/07/2018 TYPE OF CONSULTATION: Cardiology. REASON FOR CONSULTATION: Hypertension, congestive heart failure, hypertension, dizziness, rule out c ardiology etiology. REQUESTING PHYSICIAN: Sawyer Foote MD HISTORY OF PRESENT ILLNESS: Ms. Whitley Duncan is a 68-year-old female with history of hypertension , congestive heart failure, dyslipidemia, diabetes mellitus, end-stage renal disease on hemodialysis who had recently undergone screening mammogram and was found to have a suspicious microcalcifications in the right breast. The patient underwent a core biopsy which revealed invasive ductal carcinoma. The patient was evaluated by Dr. Geller and subsequently scheduled for right mastectomy. The patient subsequently presented on 11/06/2018 and underwent partial mastectomy and axillary dissection utiliz ing sentinel lymph node technique. The patient has been admitted to med/surg floor postop and postop eratively, the patient is complaining of dizziness with episodes of nausea and vomiting. The patient does have relatively stable blood pressures most recently 126/86. Prior to that, it was elevated at 165/72. The patient denies chest pain or shortness of breath at this time. PAST MEDICAL HISTORY: As above in HPI. MEDICATIONS CURRENTLY IN HOSPITAL: 1. Bumex 2 mg daily. 2. Carvedilol 6.25 mg p.o. b.i.d. 3. Pepcid 20 mg q.12. 4. Zofran p.r.n. 5. [place] p.r.n. 6. Docusate p.r.n. 7. IV fluid hydration. 8. Insulin sliding scale. 9. Morphine p.r.n. ALLERGIES: NO KNOWN DRUG ALLERGIES. SOCIAL HISTORY: No current tobacco, EtOH or illicit drug use. FAMILY HISTORY: No history of sudden cardiac or early CAD. REVIEW OF SYSTEMS: As above in HPI. CONSTITUTIONAL: No fevers, chills. PULMONARY: No current shortness of breath. CARDIOVASCULAR: No current chest pain, but pain around the surgical site. GASTROINTESTINAL: Vomiting, nausea. GENITOURINARY: No hematuria. MUSCULOSKELETAL: Degenerative joint disease. PSYCHIATRIC: No documented psych history. NEUROLOGIC: No documented history of CVA. ENDOCRINE: Diabetes mellitus. PHYSICAL EXAMINATION: VITAL SIGNS: Temperature of 97.5, blood pressure 126/86, pulse 73, respiratory rate 18, satting 95%. GENERAL: The patient is alert, awake, complaining of nausea and dizziness. NECK: JVP approximately is 8 to 9 cm of water. CHEST: Fair air movement throughout. Additionally, right side covered by dressing. HEART: Regular rate and rhythm. Normal S1, S2, I/ systolic murmur. Nondisplaced PMI. ABDOMEN: Positive bowel sounds, soft. EXTREMITIES: No significant pitting edema, 1+ pulses bilateral posterior tibial. LABORATORY DATA: Most recently from today, sodium 142, potassium 4.6, creatinine 6.94, BUN of 41. H emoglobin A1c of 6.3. Calcium 9.2. White blood cell count 6.7, hemoglobin 9.4, platelet count 158. IMAGING STUDIES: As above in HPI. No further imaging studies for my review at this time. ELECTROCARDIOGRAM: No electrocardiograms for my review at this time. Per chart biopsy, there is an echo which appears dated 10/27/2018 that is interpreted as an estimated left ventricular fraction of 60%, left ventricular hypertrophy, left ventricular diastolic dysfuncti on stage I, trace mitral and tricuspid regurgitation. IMPRESSION: 1. Hypertension, reasonable control. 2. Dizziness. Rule out cardiac etiology, rule out cardiac arrhythmia. Currently, the patient is ly ing flat in bed at this time with stable blood pressures. Unclear if side effect of anesthesia or if the patient has any history of baseline headaches. 3. Congestive heart failure with preserved EF - diastolic, acute on chronic. 4. Abnormal electrocardiogram with inferior Q's. 5. Status post right partial mastectomy for breast carcinoma. 6. Episodes of nausea and vomiting. 7. Anemia. 8. End-stage renal disease, on hemodialysis. RECOMMENDATIONS: 1. At this time, we would maintain the patient on baseline carvedilol, following blood pressure clos roscoe, which is well controlled and we will continue the patient's Bumex as she will respond to. 2. Hemodialysis for volume removal. 3. The patient is status post 2D echo at least in the chart dated somewhat recently. 4. We will send the patient's troponins q.6 x3 along with CK and CK-MB given lack of adequate cleara nce of troponins in the setting of renal failure to assure the patient has not provoked any acute cor onary syndromes in setting of surgery. 5. We are going to check serial EKGs to assess for any changes; therefore an EKG now, EKG in the mor arnold, EKG for any complaints of chest pain or change in rhythm. 6. We would continue to treat the patient's nausea with Zofran and the patient's dizziness with mecl izine. 7. Local wound care to breast surgical site. 8. Follow the patient's blood sugars closely on insulin therapy. Thank you for allowing me to take part in the care of this patient. I will continue to follow her ve ry closely with you with further recommendations to be made as the [facility]. Dictated By: ABIGAIL SMITH/MONICA Conf#: [id number] DID#: [id number] CC: SAWYER FOOTE MD; DANTE GELLER MD;*End*
[2018-11-07] MEDS: INSULIN GLARGINE [LANTus] (100 UNITS/ML) SYG SC SCH (20:28)
--- NOTE | 2018-11-07 22:03 | PN ---
Date/Time of Note Date/Time of Note DATE: 11/07/18 TIME: 22:03 Assessment/Plan VTE Prophylaxis Risk [place] [facility] [place] risk: 10 SCD applied [place] [facility] [place] Yes SCD contraindicated: other Pharmacological prophylaxis: other Pharm contraindication: other Lines/Catheters IV Catheter Type (from [facility]): [place] Urinary Cath still in place: No Assessment/Plan Result Diagram: 11/07/18 0434 11/07/18 0434 Results 24hrs Laboratory Tests Test 11/07/18 01:14 11/07/18 04:29 11/07/18 04:34 11/07/18 07:03 Bedside Glucose 150 Hepatitis B Surface NEGATIVE Antigen Hepatitis B Surface NEGATIVE Antibody White Blood Count 6.7 Red Blood Count 2.83 L Hemoglobin 9.4 L Hematocrit 28.5 L Mean Corpuscular 100.7 Volume Mean Corpuscular 33.2 H Hemoglobin Mean Corpuscular 33.0 Hemoglobin Concent Red Cell Distribution 15.0 H Width Platelet Count 158 Mean Platelet Volume 11.3 H Immature Granulocytes 0.400 % Neutrophils % 55.7 Lymphocytes % 32.4 Monocytes % 9.4 Eosinophils % 1.8 Basophils % 0.3 Nucleated Red Blood 0.3 H Cells % Immature Granulocytes 0.030 # Neutrophils # 3.7 Lymphocytes # 2.2 Monocytes # 0.6 Eosinophils # 0.1 Basophils # 0.0 Nucleated Red Blood 0.0 Cells # Sodium Level 142 Potassium Level 4.6 Chloride Level 99 Carbon Dioxide Level 24 Anion Gap 19 H Blood Urea Nitrogen 41 H Creatinine 6.94 H Est Glomerular 6 L Filtrat Rate mL/min Glucose Level 142 Hemoglobin A1c 6.3 H Calcium Level 9.2 Lab Scanned Report REFERENCE LAB Test 11/07/18 07:55 11/07/18 08:41 11/07/18 13:05 11/07/18 17:48 Bedside Glucose 188 171 125 Creatine Kinase 369 H Creatine Kinase Index 1.0 Creatinine Kinase MB 3.56 H (Mass) Troponin I 0.022 Test 11/07/18 20:21 Bedside Glucose 120 Subjective 24 Hr Interval Summary Free Text/Dictation 1352 -nad -seems comfortable -HD today - at bed side- all Qs answered -Patient refused to eat, BS 125 - no new issues reported last night Eyes: no complaints ENT: no complaints Respiratory: no complaints Cardiovascular: no complaints Gastrointestinal: no complaints Genitourinary: no complaints Musculoskeletal: no complaints Skin: no complaints Neurologic: no complaints Exam/Review of Systems Exam Vitals Vital Signs Date Temp Pulse Resp B/P (MAP) Pulse Ox O2 O2 Flow FiO2 Time Delivery Rate 11/07/18 98.3 69 18 157/69 93 21:47 (98) 11/07/18 Room Air 14:55 11/06/18 2.0 16:45 Intake and Output 11/06/18 11/06/18 11/07/18 1515:00 23:00 07:00 IntakeIntake Total 200 ml 350 ml 600 ml OutputOutput Total 10 ml 245 ml 270 ml BalanceBalance 190 ml 105 ml 330 ml Constitutional: alert, well developed, obese Psych: nl mood/affect Head: atraumatic Eyes: EOMI, nl lids ENMT: nl external ears & nose Neck: non-tender Respiratory: clear to auscultation Cardiovascular: nl pulses, other (s1s2) Gastrointestinal: soft, non-tender Musculoskeletal: muscle weakness Extremities: normal pulses Neurological: nl speech, other (alert/responsive) Skin: nl turgor Lymph: nontender Results Results 24hrs Laboratory Tests Test 11/07/18 01:14 11/07/18 04:29 11/07/18 04:34 11/07/18 07:03 Bedside Glucose 150 Hepatitis B Surface NEGATIVE Antigen Hepatitis B Surface NEGATIVE Antibody White Blood Count 6.7 Red Blood Count 2.83 L Hemoglobin 9.4 L Hematocrit 28.5 L Mean Corpuscular 100.7 Volume Mean Corpuscular 33.2 H Hemoglobin Mean Corpuscular 33.0 Hemoglobin Concent Red Cell Distribution 15.0 H Width Platelet Count 158 Mean Platelet Volume 11.3 H Immature Granulocytes 0.400 % Neutrophils % 55.7 Lymphocytes % 32.4 Monocytes % 9.4 Eosinophils % 1.8 Basophils % 0.3 Nucleated Red Blood 0.3 H Cells % Immature Granulocytes 0.030 # Neutrophils # 3.7 Lymphocytes # 2.2 Monocytes # 0.6 Eosinophils # 0.1 Basophils # 0.0 Nucleated Red Blood 0.0 Cells # Sodium Level 142 Potassium Level 4.6 Chloride Level 99 Carbon Dioxide Level 24 Anion Gap 19 H Blood Urea Nitrogen 41 H Creatinine 6.94 H Est Glomerular 6 L Filtrat Rate mL/min Glucose Level 142 Hemoglobin A1c 6.3 H Calcium Level 9.2 Lab Scanned Report REFERENCE LAB Test 11/07/18 07:55 11/07/18 08:41 11/07/18 13:05 11/07/18 17:48 Bedside Glucose 188 171 125 Creatine Kinase 369 H Creatine Kinase Index 1.0 Creatinine Kinase MB 3.56 H (Mass) Troponin I 0.022 Test 11/07/18 20:21 Bedside Glucose 120 Medications Medication Current Medications Morphine Sulfate (morphine) 2 mg Q1H PRN IV PAIN; Start 11/06/18 at 14:00 Carvedilol (Coreg) 6.25 mg BID PO Last administered on 11/07/18at 20:29; Admin Dose 6.25 MG; Start 11/06/18 at 21:00 Sevelamer Carbonate (Renvela) 0.8 gm WITH MEALS PO Last administered on 11/07/18 20:23; Admin Dose 0.8 GM; Start 11/06/18 at 17:55 Bumetanide (Bumex) 2 mg DAILY PO ; Start 11/07/18 at 09:00 Diagnostic Test (Pha) (Accu-Chek) 1 ea 02 XX Last administered on 11/07/18at 01:16; Admin Dose 1 EA; Start 11/07/18 at 02:00 Diagnostic Test (Pha) (Accu-Chek) 1 ea 02 XX ; Start 11/07/18 at 02:00 Insulin Glargine (Lantus) 27 units DAILY@2000 SC Last administered on 11/07/18 20:28; Admin Dose 27 UNITS; Start 11/06/18 at 20:00 Insulin Aspart (Novolog Insulin Pen) 9 unit WITH MEALS SC Last administered on 11/07/18at 08:42; Admin Dose 9 UNIT; Start 11/06/18 at 17:55 Insulin Aspart (Novolog Insulin Pen) NOVOLOG *MILD* ALGORITHM WITH MEALS BEDTIME SC Last administered on 11/07/18 08:43; Admin Dose 1 UNIT; Start 11/06/18 at 17:55 Miscellaneous Information 1 ea NOTE XX ; Start 11/06/18 at 18:30 Glucose (Glutose) 15 gm Q15M PRN PO DECREASED GLUCOSE; Start 11/06/18 at 18:30 Glucose (Glutose) 22.5 gm Q15M PRN PO DECREASED GLUCOSE; Start 11/06/18 at 18:30 Dextrose (D50w Syringe) 25 ml Q15M PRN IV DECREASED GLUCOSE; Start 11/06/18 at 18:30 Dextrose (D50w Syringe) 50 ml Q15M PRN IV DECREASED GLUCOSE; Start 11/06/18 at 18:30 Glucagon (Glucagen) 1 mg Q15M PRN IM DECREASED GLUCOSE; Start 11/06/18 at 18:30 Glucose (Glutose) 15 gm Q15M PRN BUCCAL DECREASED GLUCOSE; Start 11/06/18 at 18:30 Ondansetron HCl (Zofran Inj) 4 mg Q6H PRN IV NAUSEA/VOMITING Last administered on 11/07/18 20:29; Admin Dose 4 MG; Start 11/06/18 at 18:30 Acetaminophen (Tylenol Tab) 650 mg Q6H PRN PO .PAIN 1-3 OR TEMP Last administered on 11/06/18 20:27; Admin Dose 650 MG; Start 11/06/18 at 18:30 Acetaminophen/ Hydrocodone Bitart ([place] (5/325)) 1 tab Q6H PRN PO .MOD PAIN 4- 6 Last administered on 11/07/18 04:51; Admin Dose 1 TAB; Start 11/06/18 at 18:30 Docusate Sodium (Colace) 100 mg Q12H PRN PO .CONSTIPATION; Start 11/06/18 at 18:30 Bisacodyl (Dulcolax) 5 mg DAILY PRN PO .CONSTIPATION; Start 11/06/18 at 18:30 Zolpidem Tartrate (Ambien) 5 mg QHS PRN PO .INSOMNIA; Start 11/06/18 at 18:30 Famotidine (Pepcid) 20 mg Q12 PO Last administered on 11/07/18at 20:28; Admin Dose 20 MG; Start 11/06/18 at 21:00 Sodium Chloride 1,000 ml @ 60 mls/hr [id number] IV Last administered on 11/06/18 19:08; Admin Dose 60 MLS/HR; Start 11/06/18 at 18:30 Sodium Chloride (NS) -To prime the dialy... DIRECTED FOR HD PRN IV HD; Start 11/07/18 at 12:00 JANETT KIM Nov 07, 2018 22:03
[2018-11-08] VITALS (7 sets, daily range): BP systolic 127–218; BP diastolic 59–145; PULSE 57–80; RESP 18
[2018-11-08] MEDS: ACCU-CHEK XX SCH ×2 (01:57)
[2018-11-08] MEDS: SOD CHLORIDE 0.45% 1,000 ML IV SCH (03:50)
[2018-11-08] MEDS: INSULIN ASPART [NOVOLOG] 3 ML PEN SC SCH ×7 (08:51→21:00)
[2018-11-08] MEDS: SEVELAMER CARBONATE 0.8 GM PKT PO SCH ×3 (08:55→18:32)
[2018-11-08] MEDS: FAMOTIDINE 20 MG TAB PO SCH ×2 (08:56→21:22)
[2018-11-08] MEDS ORDERED: NA POLYST SULFON 15 GM/60 ML BTL PO ONE (09:00)
[2018-11-08] MEDS: BUMETANIDE 1 MG TAB PO SCH (10:31)
--- NOTE | 2018-11-08 10:33 | DS ---
Date/Time of Note Date/Time of Note DATE: 11/08/18 TIME: 10:32 Discharge Summary Admission/Discharge Info Admit Date/Time Nov 06, 2018 at 13:46 Discharge Date/Time 11/08/18 Discharge Diagnosis 1) breast cancer 2) end stage renal disease Patient Condition: Fair Consults surgery nephrology Procedures mastectomy Hx of Present Illness Patient with diabetes, renal failure, breast cancer comes in for elective mastectomy Hospital Course Patient with diabetes, renal failure, breast cancer comes in for elective mastectomy. Patient tolerated the procedure and when felt to be stable per surgery, she was sent home. Home Meds Reported Medications Amlodipine Besylate* (Norvasc*) 5 Mg Tablet, 5 MG PO DAILY, TAB 11/06/18 Insulin NPH Human Isophane (Humulin N) 100 Unit/1 Ml Vial, 24 UNIT SQ BID, VIAL 11/06/18 Insulin Regular, Human (Humulin R) 100 Unit/1 Ml Vial, 14 UNIT IJ AT NOON, VIAL 11/06/18 Losartan Potassium* (Losartan Potassium*) 100 Mg Tablet, 100 MG PO BID, TAB 11/06/18 Lorazepam* (Lorazepam*) 1 Mg Tablet, 2 MG PO QHS PRN for ANXIETY, #30 TAB 11/06/18 Hydralazine Hcl* (Hydralazine Hcl*) 100 Mg Tablet, 100 MG PO Q8, #90 TAB 11/06/18 Bumetanide* (Bumetanide*) 2 Mg Tablet, 2 MG PO DAILY, TAB ON NON DIALYSIS DAYS 11/06/18 Carvedilol* (Carvedilol*) 6.25 Mg Tablet, 6.25 MG PO BID, #60 TAB 11/06/18 Sevelamer Carbonate* (Renvela*) 0.8 Gm Powd.pack, 800-1600 MG PO WITH MEALS, PACKET 11/06/18 Simvastatin (Simvastatin) 40 Mg Tablet, 40 MG PO DAILY, #30 TAB 11/15/16 Discontinued Reported Medications Bumetanide* (Bumetanide*) 2 Mg Tablet, 2 MG PO DAILY, TAB 11/06/18 Omeprazole* (Omeprazole*) 20 Mg Capsule.dr, 20 MG PO DAILY, #30 CAP 11/15/16 Losartan-Hydrochlorothiazide (Losartan-HCTZ) 100-12.5 Mg Tab, 1 TAB PO DAILY, TAB 11/15/16 Labetalol Hcl (Labetalol Hcl) 100 Mg Tab, 100 MG PO BID, TAB 11/15/16 Furosemide (Furosemide) 1 Gm Powder, 1 GM MC 11/15/16 Insulin Human Nph (Novolin-N) 100 Units/Ml Susp, 0 SQ 11/15/16 Hydralazine Hcl* (Hydralazine Hcl*) 25 Mg Tab, 25 MG PO Q8, #90 TAB 11/15/16 Lorazepam* (Lorazepam*) 1 Mg Tablet, 1 MG PO Q6 PRN for ANXIETY, #60 TAB 11/15/16 Primary Care Provider Not On Staff Doctor Pending Labs Laboratory Tests Test 11/07/18 13:05 11/07/18 17:48 11/07/18 20:21 11/08/18 00:16 Bedside 125 120 Glucose mg/dL (70-220) mg/dL (70-220) Creatine 369 315 Kinase IU/L (23-200) IU/L (23-200) Creatine Kinase 1.0 0.9 Index Creatinine 3.56 2.96 Kinase MB ng/ml (0.0-2.4 ng/ml (0.0-2.4 (Mass) ) ) Troponin I 0.022 0.032 ng/ml (0.000-0 ng/ml (0.000-0 .120) .120) Test 11/08/18 04:27 11/08/18 08:50 White Blood 4.9 Count 10^3/ul (4.8-10 .8) Red Blood 2.90 Count 10^6/ul (4.20-5 .40) Hemoglobin 9.5 g/dl (12.0-16.0 ) Hematocrit 30.0 % (37.0-47.0) Mean 103.4 Corpuscular fl (82.0-101.0) Volume Mean 32.8 Corpuscular pg (29.0-33.0) Hemoglobin Mean 31.7 Corpuscular g/dl (32.0-37.0 Hemoglobin Conc ) ent Red Cell 14.8 Distribution % (11.5-14.5) Width Platelet Count 152 10^3/UL (140-41 5) Mean Platelet 10.9 Volume fl (7.4-10.4) Immature 0.400 Granulocytes % % (0.001-0.429) Neutrophils % 55.1 % (39.0-77.0) Lymphocytes % 32.4 % (15.0-51.0) Monocytes % 8.8 % (0.0-11.0) Eosinophils % 2.9 % (0.0-7.0) Basophils % 0.4 % (0.0-2.0) Nucleated Red 0.0 Blood Cells % /100WBC (0.0-0. 0) Immature 0.020 Granulocytes # 10^3/ul (0.0-0. 031) Neutrophils # 2.7 10^3/ul (1.6-7. 5) Lymphocytes # 1.6 10^3/ul (0.8-2. 9) Monocytes # 0.4 10^3/ul (0.3-0. 9) Eosinophils # 0.1 10^3/ul (0.0-0. 5) Basophils # 0.0 10^3/ul (0.0-0. 1) Nucleated Red 0.0 Blood Cells # 10^3/ul (0.0-0. 0) Sodium Level 143 mmol/L (135-144 ) Potassium 5.3 Level mmol/L (3.5-5.1 ) Chloride Level 100 mmol/L (97-110) Carbon Dioxide 31 Level mmol/L (21-31) Anion Gap 12 (5-13) Blood Urea 24 mg/dl (7-20) Nitrogen Creatinine 5.24 mg/dl (0.44-1.0 0) Est Glomerular 8 mL/min (>60) Filtrat Rate mL/min Glucose Level 131 mg/dl (70-220) Calcium Level 9.8 mg/dl (8.4-10.2 ) Creatine 332 Kinase IU/L (23-200) Creatine Kinase 0.8 Index Creatinine 2.71 Kinase MB ng/ml (0.0-2.4) (Mass) Troponin I 0.029 ng/ml (0.000-0. 120) Triglycerides 273 Level mg/dl (0-149) Cholesterol 154 Level mg/dl (100-200) LDL 58 mg/dl Cholesterol, Calculated HDL 41 Cholesterol mg/dl (33-92) Cholesterol/HDL 3.7 RATIO Ratio Thyroid 1.120 Stimulating MIU/L (0.465-4. Hormone (TSH) 680) Bedside 139 Glucose mg/dL (70-220) MELVINA RANGEL Nov 08, 2018 10:33
--- NOTE | 2018-11-08 10:40 | PN ---
DATE: 11/08/2018 SUBJECTIVE: The patient had hemodialysis yesterday, tolerated well. The patient this morning was no lyle to be hyperkalemic with potassium 5.3. I recommended to the patient and patient's at bed side to do hemodialysis. They are refusing. Risks and benefits of hyperkalemia were explained to th e patient in detail including possible . The patient acknowledged and continued to refuse dialy sis. No other events noted. OBJECTIVE: VITAL SIGNS: Blood pressure is 181/75, respiration 18, pulse 57, temperature 97.7. HEENT: Head is normocephalic. NECK: Supple. HEART: Regular rate. LUNGS: Show diminished breath sounds at the base. ABDOMEN: Soft, nontender to palpation without rebound or guarding. EXTREMITIES: Negative for clubbing, cyanosis, no edema. DERMATOLOGIC: No rashes. MUSCULOSKELETAL: No joint effusion. NEUROLOGIC: No change in exam. MEDICATIONS: Reviewed. LABORATORY DATA: Shows sodium 143, potassium 5.3, BUN 24, creatinine 5.24. White count 4.9, hemoglo bin 9.5, platelet count is 152. ASSESSMENT AND PLAN: 1. End-stage renal disease. The patient had hemodialysis yesterday, tolerated well. The patient is refusing hemodialysis today despite being hyperkalemic. Risks and benefits were explained as stated above. Continue to monitor. 2. Anemia. Monitor hemoglobin and hematocrit levels. Will give Epogen as needed. 3. Mineral bone disorder. Monitor calcium and phosphorus levels. 4. Hyperkalemia. Etiology is secondary to end-stage renal disease. The patient is refusing hemodia lysis. Continue low-potassium diet. 5. Right breast carcinoma. The patient is status post partial mastectomy with axillary dissection o f sentinel lymph nodes. Continue to monitor. Continue pain control. 6. Diabetes. Continue current insulin regimen. 7. Congestive heart failure, compensated. Continue ultrafiltration dialysis. 8. Hypertension. Continue current blood pressure regimen. Dictated By: TRINITY GATES/NTS Conf#: [id number] DID#: [id number] CC: DANTE GOMES MD;*EndCC*
[2018-11-08] MEDS: ONDANSETRON 4 MG INJ IV PRN (13:24)
--- NOTE | 2018-11-08 16:27 | CONS ---
Assessment/Plan Assessment/Plan Hospital Course (Demo Recall) IMPRESSION: 1. Hypertension-labile. ? component of pain from PONCE 2. Dizziness. Rule out cardiac etiology, rule out cardiac arrhythmia. Currently, the patient is lying flat in bed at this time with stable blood pressures. Unclear if side effect of anesthesia or if the patient has any history of baseline headaches. 3. Congestive heart failure with preserved EF - diastolic, acute on chronic. 4. Abnormal electrocardiogram with inferior Q's. 5. Status post right partial mastectomy for breast carcinoma. 6. Episodes of nausea and vomiting. 7. Anemia. 8. End-stage renal disease, on hemodialysis. 9. Presyncopal episode this am-to be transferred to tele- trop neg x 3 10.hyperkalemia-mild Recc: -Monitor rhythm on tele -Continue coreg and follow BP closely -HD as patient will comply as she is refusing at this time -add hydralazine to assure good BP control -will send additional troponin to assure no ACS lending to sx Consultation Date/Type/Reason Admit Date/Time Nov 06, 2018 at 13:46 Initial Consult Date 11/07/18 Type of Consult Cardiology Reason for Consultation dizziness/presyncope Requesting Provider: SAWYER FOOTE MD Date/Time of Note DATE: 11/08/18 TIME: 16:10 Exam/Review of Systems Vital Signs Vitals Vital Signs Date Temp Pulse Resp B/P (MAP) Pulse Ox O2 O2 Flow FiO2 Time Delivery Rate 11/08/18 97.7 63 18 127/81 95 Room Air 13:25 (96) 11/06/18 2.0 16:45 Intake and Output 11/07/18 11/07/18 11/08/18 1515:00 23:00 07:00 IntakeIntake Total 600 ml 440 ml OutputOutput Total 250 ml 940 ml 20 ml BalanceBalance -250 ml -340 ml 420 ml Exam Exam Review of Systems: CONSTITUTIONAL: No fevers, chills. PULMONARY: No sob CARDIOVASCULAR: No chest pain/palpitations GASTROINTESTINAL: No nausea/vomiting. GENITOURINARY: No hematuria/dysuria. MUSCULOSKELETAL: No myagias/arthalgias. PSYCHIATRIC: The patient denies depression. NEUROLOGIC: No weakness Constitutional: alert Psych: no complaints Head: normocephalic ENMT: mucosa pink and moist Neck: supple, jvd (9 cm water) Respiratory: clear to auscultation Cardiovascular: regular rate and rhythm Gastrointestinal: soft, non-tender Musculoskeletal: muscle tone (normal) Extremities: edema (none) Neurological: other (No focal deficits) Labs Result Diagram: 11/08/187 11/08/18 0427 Results 24hrs Laboratory Tests Test 11/07/18 17:48 11/07/18 20:21 11/08/18 00:16 11/08/18 04:27 Creatine Kinase 369 H 315 H 332 H Creatine Kinase Index 1.0 0.9 0.8 Creatinine Kinase MB 3.56 H 2.96 H 2.71 H (Mass) Troponin I 0.022 0.032 0.029 Bedside Glucose 120 White Blood Count 4.9 # Red Blood Count 2.90 L Hemoglobin 9.5 L Hematocrit 30.0 L Mean Corpuscular Volume 103.4 H Mean Corpuscular 32.8 Hemoglobin Mean Corpuscular 31.7 L Hemoglobin Concent Red Cell Distribution 14.8 H Width Platelet Count 152 Mean Platelet Volume 10.9 H Immature Granulocytes % 0.400 Neutrophils % 55.1 Lymphocytes % 32.4 Monocytes % 8.8 Eosinophils % 2.9 Basophils % 0.4 Nucleated Red Blood 0.0 Cells % Immature Granulocytes # 0.020 Neutrophils # 2.7 Lymphocytes # 1.6 Monocytes # 0.4 Eosinophils # 0.1 Basophils # 0.0 Nucleated Red Blood 0.0 Cells # Sodium Level 143 Potassium Level 5.3 H Chloride Level 100 Carbon Dioxide Level 31 Anion Gap 12 # Blood Urea Nitrogen 24 #H Creatinine 5.24 H Est Glomerular Filtrat 8 L Rate mL/min Glucose Level 131 Calcium Level 9.8 Triglycerides Level 273 H Cholesterol Level 154 LDL Cholesterol, 58 Calculated HDL Cholesterol 41 Cholesterol/HDL Ratio 3.7 Thyroid Stimulating 1.120 Hormone (TSH) Test 11/08/18 08:50 11/08/18 12:37 Bedside Glucose 139 96 Medications Medications Current Medications Morphine Sulfate (morphine) 2 mg Q1H PRN IV PAIN; Start 11/06/18 at 14:00 Carvedilol (Coreg) 6.25 mg BID PO Last administered on 11/08/18at 10:32; Admin Dose 6.25 MG; Start 11/06/18 at 21:00 Sevelamer Carbonate (Renvela) 0.8 gm WITH MEALS PO Last administered on 11/08/18 at 12:50; Admin Dose 0.8 GM; Start 11/06/18 at 17:55 Bumetanide (Bumex) 2 mg DAILY PO Last administered on 11/08/18at 10:31; Admin Dose 2 MG; Start 11/07/18 at 09:00 Diagnostic Test (Pha) (Accu-Chek) 1 ea 02 XX Last administered on 11/07/18at 01:16; Admin Dose 1 EA; Start 11/07/18 at 02:00 Diagnostic Test (Pha) (Accu-Chek) 1 ea 02 XX ; Start 11/07/18 at 02:00 Insulin Glargine (Lantus) 27 units DAILY@2000 SC Last administered on 11/07/18 20:28; Admin Dose 27 UNITS; Start 11/06/18 at 20:00 Insulin Aspart (Novolog Insulin Pen) 9 unit WITH MEALS SC Last administered on 11/08/18at 12:50; Admin Dose 9 UNIT; Start 11/06/18 at 17:55 Insulin Aspart (Novolog Insulin Pen) NOVOLOG *MILD* ALGORITHM WITH MEALS BEDTIME SC Last administered on 11/07/18at 08:43; Admin Dose 1 UNIT; Start 11/06/18 at 17:55 Miscellaneous Information 1 ea NOTE XX ; Start 11/06/18 at 18:30 Glucose (Glutose) 15 gm Q15M PRN PO DECREASED GLUCOSE; Start 11/06/18 at 18:30 Glucose (Glutose) 22.5 gm Q15M PRN PO DECREASED GLUCOSE; Start 11/06/18 at 18:30 Dextrose (D50w Syringe) 25 ml Q15M PRN IV DECREASED GLUCOSE; Start 11/06/18 at 18:30 Dextrose (D50w Syringe) 50 ml Q15M PRN IV DECREASED GLUCOSE; Start 11/06/18 at 18:30 Glucagon (Glucagen) 1 mg Q15M PRN IM DECREASED GLUCOSE; Start 11/06/18 at 18:30 Glucose (Glutose) 15 gm Q15M PRN BUCCAL DECREASED GLUCOSE; Start 11/06/18 at 18:30 Ondansetron HCl (Zofran Inj) 4 mg Q6H PRN IV NAUSEA/VOMITING Last administered on 11/08/18at 13:24; Admin Dose 4 MG; Start 11/06/18 at 18:30 Acetaminophen (Tylenol Tab) 650 mg Q6H PRN PO .PAIN 1-3 OR TEMP Last administered on 11/06/18at 20:27; Admin Dose 650 MG; Start 11/06/18 at 18:30 Acetaminophen/ Hydrocodone Bitart ([place] (5/325)) 1 tab Q6H PRN PO .MOD PAIN 4- 6 Last administered on 11/07/18at 04:51; Admin Dose 1 TAB; Start 11/06/18 at 18:30 Docusate Sodium (Colace) 100 mg Q12H PRN PO .CONSTIPATION; Start 11/06/18 at 18:30 Bisacodyl (Dulcolax) 5 mg DAILY PRN PO .CONSTIPATION; Start 11/06/18 at 18:30 Zolpidem Tartrate (Ambien) 5 mg QHS PRN PO .INSOMNIA; Start 11/06/18 at 18:30 Famotidine (Pepcid) 20 mg Q12 PO Last administered on 11/08/18at 08:56; Admin Dose 20 MG; Start 11/06/18 at 21:00 Sodium Chloride (NS) -To prime the dialy... DIRECTED FOR HD PRN IV HD; Start 11/07/18 at 12:00 ABIGAIL GALVAN Nov 08, 2018 16:20
--- NOTE | 2018-11-08 17:00 | PN ---
DATE: 11/08/2018 SUBJECTIVE: Postop day #2, status post right breast partial mastectomy with axillary resection. Als o, patient has chronic renal disease and end-stage renal disease who is being managed with hemodialys is. The patient had hemodialysis yesterday. Apparently, today, patient has been nauseous and vomiti ng several times from night till morning. The professional programmer analyst, Dr. Vidal, had suggested another hemod ialysis because the potassium is 5.6, but apparently the patient and have refused. On examin ing the patient, I explained to them again the importance of having dialysis because the potassium hi gh and is quite dangerous, and is going to go higher up. Eventually they agreed and they notified [facility] nurse that want a dialysis. So the nurse is going to call Dr. Vidal and make arrangements for t hat. PHYSICAL EXAMINATION: GENERAL: The patient is alert, awake, sitting in semi-sitting position on the bed. VITAL SIGNS: Temperature 97.7, heart rate 63, respiration 18, blood pressure 127/81, saturation 95% room air. HEART: Regular. LUNGS: Clear. ABDOMEN: Soft. Bowel sound is normal. CHEST WALL: The dressing is intact. Vaibhav-Hadley drain shows evidence of serosanguineous fluid in the bag. ASSESSMENT AND PLAN: From surgical point of view, the patient is stable. The patient can be dischar ged to home from surgical point of view any time, which is okay with the professional programmer analyst and internal il dicine service. The patient to call Dr. Geller' office and make an appointment for followup next week . Dictated By: OCTAVIA GARCIA MD PS/NTS Conf#: [id number] DID#: [id number] CC: DANTE GELLER MD;*EndCC*
--- NOTE | 2018-11-08 17:17 | RADRPT ---
Vent Rate: 58 bpm RR Interval: 0 msec [place] Interval: 158 msec QRS Duration: 96 msec QT Interval: 450 msec QTC Interval: 441 msec P-R-T [place]: 64 - 38 - 74 degrees Sinus bradycardia Otherwise normal ECG Electronically Signed By: Ernesto Grace
--- NOTE | 2018-11-08 17:18 | RADRPT ---
Vent Rate: 71 bpm RR Interval: 0 msec [place] Interval: 156 msec QRS Duration: 82 msec QT Interval: 452 msec QTC Interval: 491 msec P-R-T [place]: 66 - 16 - 71 degrees Normal sinus rhythm Prolonged QT Abnormal ECG Electronically Signed By: Ernesto Grace
[2018-11-08] MEDS: INSULIN GLARGINE [LANTus] (100 UNITS/ML) SYG SC SCH (22:06)
[2018-11-09] VITALS (10 sets, daily range): BP systolic 118–180; BP diastolic 55–74; PULSE 49–59; RESP 16–18
[2018-11-09] MEDS: ACCU-CHEK XX SCH (02:00)
[2018-11-09] MEDS: INSULIN ASPART [NOVOLOG] 3 ML PEN SC SCH ×6 (07:55→17:29)
[2018-11-09] MEDS: SEVELAMER CARBONATE 0.8 GM PKT PO SCH ×3 (08:59→17:25)
[2018-11-09] MEDS ORDERED: hydrALAzine 20 MG INJ IV PRN (09:00)
[2018-11-09] MEDS: BUMETANIDE 1 MG TAB PO SCH (09:03)
[2018-11-09] MEDS: FAMOTIDINE 20 MG TAB PO SCH (09:03)
--- NOTE | 2018-11-09 11:45 | PN ---
Date/Time of Note Date/Time of Note DATE: 11/09/18 TIME: 11:44 Assessment/Plan VTE Prophylaxis Risk score (from Ns)>0 risk: 3 SCD applied (from Ns): Yes Pharmacological prophylaxis: LMWH Lines/Catheters [facility] [place] Urinary Cath still in place: No Assessment/Plan Hospital Course Patient with diabetes, renal failure, breast cancer comes in for elective mastectomy. Patient tolerated the procedure and when felt to be stable per surgery, she was sent home. Result Diagram: 11/09/1841 11/09/1841 Results 24hrs Laboratory Tests Test 11/08/18 12:37 11/08/18 18:08 11/08/18 21:16 11/09/18 06:41 Bedside Glucose 96 115 114 White Blood Count 5.6 Red Blood Count 3.05 L Hemoglobin 10.0 L Hematocrit 31.3 L Mean Corpuscular 102.6 H Volume Mean Corpuscular 32.8 Hemoglobin Mean Corpuscular 31.9 L Hemoglobin Concent Red Cell Distribution 14.5 Width Platelet Count 158 Mean Platelet Volume 10.3 Immature Granulocytes 0.500 H % Neutrophils % 54.0 Lymphocytes % 32.4 Monocytes % 9.5 Eosinophils % 3.2 Basophils % 0.4 Nucleated Red Blood 0.0 Cells % Immature Granulocytes 0.030 # Neutrophils # 3.0 Lymphocytes # 1.8 Monocytes # 0.5 Eosinophils # 0.2 Basophils # 0.0 Nucleated Red Blood 0.0 Cells # Sodium Level 142 Potassium Level 5.0 Chloride Level 102 Carbon Dioxide Level 27 Anion Gap 13 Blood Urea Nitrogen 38 #H Creatinine 7.16 H Est Glomerular 6 L Filtrat Rate mL/min Glucose Level 120 Calcium Level 10.1 Phosphorus Level 5.4 H Magnesium Level 2.4 Test 11/09/18 06:42 11/09/18 08:03 Troponin I 0.020 Bedside Glucose 125 Subjective 24 Hr Interval Summary Free Text/Dictation Patient had two episodes of near syncope that was witnessed by the and so the patient was transferred to telemetry. She is doing fine with no further episodes Exam/Review of Systems Exam Vitals Vital Signs Date Temp Pulse Resp B/P (MAP) Pulse Ox O2 O2 Flow FiO2 Time Delivery Rate 11/09/18 52 09:34 11/09/18 97.5 16 151/63 95 07:50 (92) 11/08/18 Room Air 17:33 11/06/18 2.0 16:45 Intake and Output 11/08/18 11/08/18 11/09/18 1515:00 23:00 07:00 IntakeIntake Total 0 ml 960 ml OutputOutput Total 22 ml 25 ml BalanceBalance 0 ml 938 ml -25 ml Constitutional: well developed Head: normocephalic, atraumatic Neck: supple Respiratory: clear to auscultation Cardiovascular: regular rate and rhythm Gastrointestinal: soft, non-tender Extremities: normal pulses Results Results 24hrs Laboratory Tests Test 11/08/18 12:37 11/08/18 18:08 11/08/18 21:16 11/09/18 06:41 Bedside Glucose 96 115 114 White Blood Count 5.6 Red Blood Count 3.05 L Hemoglobin 10.0 L Hematocrit 31.3 L Mean Corpuscular 102.6 H Volume Mean Corpuscular 32.8 Hemoglobin Mean Corpuscular 31.9 L Hemoglobin Concent Red Cell Distribution 14.5 Width Platelet Count 158 Mean Platelet Volume 10.3 Immature Granulocytes 0.500 H % Neutrophils % 54.0 Lymphocytes % 32.4 Monocytes % 9.5 Eosinophils % 3.2 Basophils % 0.4 Nucleated Red Blood 0.0 Cells % Immature Granulocytes 0.030 # Neutrophils # 3.0 Lymphocytes # 1.8 Monocytes # 0.5 Eosinophils # 0.2 Basophils # 0.0 Nucleated Red Blood 0.0 Cells # Sodium Level 142 Potassium Level 5.0 Chloride Level 102 Carbon Dioxide Level 27 Anion Gap 13 Blood Urea Nitrogen 38 #H Creatinine 7.16 H Est Glomerular 6 L Filtrat Rate mL/min Glucose Level 120 Calcium Level 10.1 Phosphorus Level 5.4 H Magnesium Level 2.4 Test 11/09/18 06:42 11/09/18 08:03 Troponin I 0.020 Bedside Glucose 125 Medications Medication Current Medications Morphine Sulfate (morphine) 2 mg Q1H PRN IV PAIN; Start 11/06/18 at 14:00 Carvedilol (Coreg) 6.25 mg BID PO Last administered on 11/08/18at 21:22; Admin Dose 6.25 MG; Start 11/06/18 at 21:00 Sevelamer Carbonate (Renvela) 0.8 gm WITH MEALS PO Last administered on 11/09/18at 08:59; Admin Dose 0.8 GM; Start 11/06/18 at 17:55 Bumetanide (Bumex) 2 mg DAILY PO Last administered on 11/09/18 09:03; Admin Dose 2 MG; Start 11/07/18 at 09:00 Diagnostic Test (Pha) (Accu-Chek) 1 ea 02 XX ; Start 11/07/18 at 02:00 Insulin Glargine (Lantus) 27 units DAILY@2000 SC Last administered on 11/08/18 22:06; Admin Dose 27 UNITS; Start 11/06/18 at 20:00 Insulin Aspart (Novolog Insulin Pen) 9 unit WITH MEALS SC Last administered on 11/09/18 08:07; Admin Dose 9 UNIT; Start 11/06/18 at 17:55 Insulin Aspart (Novolog Insulin Pen) NOVOLOG *MILD* ALGORITHM WITH MEALS BEDTIME SC Last administered on 11/07/18 08:43; Admin Dose 1 UNIT; Start 11/06/18 at 17:55 Miscellaneous Information 1 ea NOTE XX ; Start 11/06/18 at 18:30 Glucose (Glutose) 15 gm Q15M PRN PO DECREASED GLUCOSE; Start 11/06/18 at 18:30 Glucose (Glutose) 22.5 gm Q15M PRN PO DECREASED GLUCOSE; Start 11/06/18 at 18:30 Dextrose (D50w Syringe) 25 ml Q15M PRN IV DECREASED GLUCOSE; Start 11/06/18 at 18:30 Dextrose (D50w Syringe) 50 ml Q15M PRN IV DECREASED GLUCOSE; Start 11/06/18 at 18:30 Glucagon (Glucagen) 1 mg Q15M PRN IM DECREASED GLUCOSE; Start 11/06/18 at 18:30 Glucose (Glutose) 15 gm Q15M PRN BUCCAL DECREASED GLUCOSE; Start 11/06/18 at 18:30 Ondansetron HCl (Zofran Inj) 4 mg Q6H PRN IV NAUSEA/VOMITING Last administered on 11/08/18at 13:24; Admin Dose 4 MG; Start 11/06/18 at 18:30 Acetaminophen (Tylenol Tab) 650 mg Q6H PRN PO .PAIN 1-3 OR TEMP Last administered on 11/06/18 20:27; Admin Dose 650 MG; Start 11/06/18 at 18:30 Acetaminophen/ Hydrocodone Bitart ([place] (5/325)) 1 tab Q6H PRN PO .MOD PAIN 4- 6 Last administered on 11/07/18at 04:51; Admin Dose 1 TAB; Start 11/06/18 at 18:30 Docusate Sodium (Colace) 100 mg Q12H PRN PO .CONSTIPATION; Start 11/06/18 at 1 8:30 Bisacodyl (Dulcolax) 5 mg DAILY PRN PO .CONSTIPATION; Start 11/06/18 at 18:30 Zolpidem Tartrate (Ambien) 5 mg QHS PRN PO .INSOMNIA; Start 11/06/18 at 18:30 Famotidine (Pepcid) 20 mg Q12 PO Last administered on 11/09/18at 09:03; Admin Dose 20 MG; Start 11/06/18 at 21:00 Sodium Chloride (NS) -To prime the dialy... DIRECTED FOR HD PRN IV HD; Start 11/07/18 at 12:00 Hydralazine HCl (Apresoline) 25 mg Q8 PO Last administered on 11/09/18at 06:38; Admin Dose 25 MG; Start 11/08/18 at 22:00 Hydralazine HCl (Apresoline) 10 mg Q4H PRN IV ELEVATED BLOOD PRESSURE; Start 11/09/18 at 09:00 MELVINA RANGEL Nov 09, 2018 11:45
--- NOTE | 2018-11-09 11:50 | DS ---
Date/Time of Note Date/Time of Note DATE: 11/09/18 TIME: 11:49 Discharge Summary Admission/Discharge Info Admit Date/Time Nov 06, 2018 at 13:46 Discharge Date/Time 11/09/18 Discharge Diagnosis 1) breast cancer 2) end stage renal disease 3) near syncope Patient Condition: Fair Consults surgery cardiology Procedures mastectomy Hx of Present Illness Patient with diabetes, renal failure, breast cancer comes in for elective mast ectomy Hospital Course Patient with diabetes, renal failure, breast cancer comes in for elective mastectomy. Patient tolerated the procedure. Patient did have near syncope but she was monitored on telemetry and felt to be stable and so she was sent home. Home Meds Reported Medications Amlodipine Besylate* (Norvasc*) 5 Mg Tablet, 5 MG PO DAILY, TAB 11/06/18 Insulin NPH Human Isophane (Humulin N) 100 Unit/1 Ml Vial, 24 UNIT SQ BID, VIAL 11/06/18 Insulin Regular, Human (Humulin R) 100 Unit/1 Ml Vial, 14 UNIT IJ AT NOON, VIAL 11/06/18 Losartan Potassium* (Losartan Potassium*) 100 Mg Tablet, 100 MG PO BID, TAB 11/06/18 Lorazepam* (Lorazepam*) 1 Mg Tablet, 2 MG PO QHS PRN for ANXIETY, #30 TAB 11/06/18 Hydralazine Hcl* (Hydralazine Hcl*) 100 Mg Tablet, 100 MG PO Q8, #90 TAB 11/06/18 Bumetanide* (Bumetanide*) 2 Mg Tablet, 2 MG PO DAILY, TAB ON NON DIALYSIS DAYS 11/06/18 Carvedilol* (Carvedilol*) 6.25 Mg Tablet, 6.25 MG PO BID, #60 TAB 11/06/18 Sevelamer Carbonate* (Renvela*) 0.8 Gm Powd.pack, 800-1600 MG PO WITH MEALS, PACKET 11/06/18 Simvastatin (Simvastatin) 40 Mg Tablet, 40 MG PO DAILY, #30 TAB 11/15/16 Discontinued Reported Medications Bumetanide* (Bumetanide*) 2 Mg Tablet, 2 MG PO DAILY, TAB 11/06/18 Omeprazole* (Omeprazole*) 20 Mg Capsule.dr, 20 MG PO DAILY, #30 CAP 11/15/16 Losartan-Hydrochlorothiazide (Losartan-HCTZ) 100-12.5 Mg Tab, 1 TAB PO DAILY, T AB 11/15/16 Labetalol Hcl (Labetalol Hcl) 100 Mg Tab, 100 MG PO BID, TAB 11/15/16 Furosemide (Furosemide) 1 Gm Powder, 1 GM MC 11/15/16 Insulin Human Nph (Novolin-N) 100 Units/Ml Susp, 0 SQ 11/15/16 Hydralazine Hcl* (Hydralazine Hcl*) 25 Mg Tab, 25 MG PO Q8, #90 TAB 11/15/16 Lorazepam* (Lorazepam*) 1 Mg Tablet, 1 MG PO Q6 PRN for ANXIETY, #60 TAB 11/15/16 Primary Care Provider Not On Staff Doctor Pending Labs Laboratory Tests Test 11/08/18 12:37 11/08/18 18:08 11/08/18 21:16 11/09/18 06:41 Bedside 96 115 114 Glucose mg/dL (70-220) mg/dL (70-220) mg/dL (70-220) White Blood 5.6 Count 10^3/ul (4.8-1 0.8) Red Blood 3.05 Count 10^6/ul (4.20- 5.40) Hemoglobin 10.0 g/dl (12.0-16. 0) Hematocrit 31.3 % (37.0-47.0) Mean 102.6 Corpuscular fl (82.0-101.0 Volume ) Mean 32.8 Corpuscular pg (29.0-33.0) Hemoglobin Mean 31.9 Corpuscular g/dl (32.0-37. Hemoglobin Conc 0) ent Red Cell 14.5 Distribution % (11.5-14.5) Width Platelet Count 158 10^3/UL (140-4 15) Mean Platelet 10.3 Volume fl (7.4-10.4) Immature 0.500 Granulocytes % % (0.001-0.429 ) Neutrophils % 54.0 % (39.0-77.0) Lymphocytes % 32.4 % (15.0-51.0) Monocytes % 9.5 % (0.0-11.0) Eosinophils % 3.2 % (0.0-7.0) Basophils % 0.4 % (0.0-2.0) Nucleated Red 0.0 Blood Cells % /100WBC (0.0-0 .0) Immature 0.030 Granulocytes # 10^3/ul (0.0-0 .031) Neutrophils # 3.0 10^3/ul (1.6-7 .5) Lymphocytes # 1.8 10^3/ul (0.8-2 .9) Monocytes # 0.5 10^3/ul (0.3-0 .9) Eosinophils # 0.2 10^3/ul (0.0-0 .5) Basophils # 0.0 10^3/ul (0.0-0 .1) Nucleated Red 0.0 Blood Cells # 10^3/ul (0.0-0 .0) Sodium Level 142 mmol/L (135-14 4) Potassium 5.0 Level mmol/L (3.5-5. 1) Chloride Level 102 mmol/L (97-110 ) Carbon Dioxide 27 Level mmol/L (21-31) Anion Gap 13 (5-13) Blood Urea 38 Nitrogen mg/dl (7-20) Creatinine 7.16 mg/dl (0.44-1. 00) Est Glomerular 6 mL/min (>60) Filtrat Rate mL/min Glucose Level 120 mg/dl (70-220) Calcium Level 10.1 mg/dl (8.4-10. 2) Phosphorus 5.4 Level mg/dl (2.5-4.9 ) Magnesium 2.4 Level mg/dl (1.7-2.5 ) Test 11/09/18 06:42 11/09/18 08:03 Troponin I 0.020 ng/ml (0.000-0. 120) Bedside 125 Glucose mg/dL (70-220) MELVINA RANGEL Nov 09, 2018 11:50
--- NOTE | 2018-11-09 14:09 | CONS ---
Consult Date/Type/Reason Admit Date/Time Nov 06, 2018 at 13:46 Initial Consult Date Requesting Provider: SAWYER FOOTE MD Date/Time of Note DATE: 11/09/18 TIME: 14:08 Subjective Pt w/o complaints. No sob Objective Vitals Vital Signs Date Temp Pulse Resp B/P (MAP) Pulse Ox O2 O2 Flow FiO2 Time Delivery Rate 11/09/18 55 12:32 11/09/18 97.8 18 180/74 99 11:40 (109) 11/08/18 Room Air 17:33 11/06/18 2.0 16:45 Intake and Output 11/08/18 11/08/18 11/09/18 1515:00 23:00 07:00 IntakeIntake Total 0 ml 960 ml OutputOutput Total 22 ml 25 ml BalanceBalance 0 ml 938 ml -25 ml Results/Medications Result Diagram: 11/09/18 0641 11/09/18 0641 Results 24 hrs Laboratory Tests Test 11/08/18 18:08 11/08/18 21:16 11/09/18 06:41 11/09/18 06:42 Bedside Glucose 115 114 White Blood Count 5.6 Red Blood Count 3.05 L Hemoglobin 10.0 L Hematocrit 31.3 L Mean Corpuscular 102.6 H Volume Mean Corpuscular 32.8 Hemoglobin Mean Corpuscular 31.9 L Hemoglobin Concent Red Cell 14.5 Distribution Width Platelet Count 158 Mean Platelet Volume 10.3 Immature 0.500 H Granulocytes % Neutrophils % 54.0 Lymphocytes % 32.4 Monocytes % 9.5 Eosinophils % 3.2 Basophils % 0.4 Nucleated Red Blood 0.0 Cells % Immature 0.030 Granulocytes # Neutrophils # 3.0 Lymphocytes # 1.8 Monocytes # 0.5 Eosinophils # 0.2 Basophils # 0.0 Nucleated Red Blood 0.0 Cells # Sodium Level 142 Potassium Level 5.0 Chloride Level 102 Carbon Dioxide Level 27 Anion Gap 13 Blood Urea Nitrogen 38 #H Creatinine 7.16 H Est Glomerular 6 L Filtrat Rate mL/min Glucose Level 120 Calcium Level 10.1 Phosphorus Level 5.4 H Magnesium Level 2.4 Troponin I 0.020 Test 11/09/18 08:03 11/09/18 12:02 Bedside Glucose 125 152 Home Meds Reported Medications Amlodipine Besylate* (Norvasc*) 5 Mg Tablet, 5 MG PO DAILY, TAB 11/06/18 Insulin NPH Human Isophane (Humulin N) 100 Unit/1 Ml Vial, 24 UNIT SQ BID, VIAL 11/06/18 Insulin Regular, Human (Humulin R) 100 Unit/1 Ml Vial, 14 UNIT IJ AT NOON, VIAL 11/06/18 Losartan Potassium* (Losartan Potassium*) 100 Mg Tablet, 100 MG PO BID, TAB 11/06/18 Lorazepam* (Lorazepam*) 1 Mg Tablet, 2 MG PO QHS PRN for ANXIETY, #30 TAB 11/06/18 Hydralazine Hcl* (Hydralazine Hcl*) 100 Mg Tablet, 100 MG PO Q8, #90 TAB 11/06/18 Bumetanide* (Bumetanide*) 2 Mg Tablet, 2 MG PO DAILY, TAB ON NON DIALYSIS DAYS 11/06/18 Carvedilol* (Carvedilol*) 6.25 Mg Tablet, 6.25 MG PO BID, #60 TAB 11/06/18 Sevelamer Carbonate* (Renvela*) 0.8 Gm Powd.pack, 800-1600 MG PO WITH MEALS, PACKET 11/06/18 Simvastatin (Simvastatin) 40 Mg Tablet, 40 MG PO DAILY, #30 TAB 11/15/16 Discontinued Reported Medications Bumetanide* (Bumetanide*) 2 Mg Tablet, 2 MG PO DAILY, TAB 11/06/18 Omeprazole* (Omeprazole*) 20 Mg Capsule.dr, 20 MG PO DAILY, #30 CAP 11/15/16 Losartan-Hydrochlorothiazide (Losartan-HCTZ) 100-12.5 Mg Tab, 1 TAB PO DAILY, TAB 11/15/16 Labetalol Hcl (Labetalol Hcl) 100 Mg Tab, 100 MG PO BID, TAB 11/15/16 Furosemide (Furosemide) 1 Gm Powder, 1 GM MC 11/15/16 Insulin Human Nph (Novolin-N) 100 Units/Ml Susp, 0 SQ 11/15/16 Hydralazine Hcl* (Hydralazine Hcl*) 25 Mg Tab, 25 MG PO Q8, #90 TAB 11/15/16 Lorazepam* (Lorazepam*) 1 Mg Tablet, 1 MG PO Q6 PRN for ANXIETY, #60 TAB 11/15/16 Medications Current Medications Morphine Sulfate (morphine) 2 mg Q1H PRN IV PAIN; Start 11/06/18 at 14:00 Carvedilol (Coreg) 6.25 mg BID PO Last administered on 11/09/18 12:35; Admin D ose 6.25 MG; Start 11/06/18 at 21:00 Sevelamer Carbonate (Renvela) 0.8 gm WITH MEALS PO Last administered on 11/09/18 12:29; Admin Dose 0.8 GM; Start 11/06/18 at 17:55 Bumetanide (Bumex) 2 mg DAILY PO Last administered on 11/09/18 09:03; Admin Dose 2 MG; Start 11/07/18 at 09:00 Diagnostic Test (Pha) (Accu-Chek) 1 ea 02 XX ; Start 11/07/18 at 02:00 Insulin Glargine (Lantus) 27 units DAILY@2000 SC Last administered on 11/08/18 22:06; Admin Dose 27 UNITS; Start 11/06/18 at 20:00 Insulin Aspart (Novolog Insulin Pen) 9 unit WITH MEALS SC Last administered on 11/09/18 12:07; Admin Dose 9 UNIT; Start 11/06/18 at 17:55 Insulin Aspart (Novolog Insulin Pen) NOVOLOG *MILD* ALGORITHM WITH MEALS BEDT PATRICK SC Last administered on 11/09/18 12:07; Admin Dose 1 UNIT; Start 11/06/18 at 17:55 Miscellaneous Information 1 ea NOTE XX ; Start 11/06/18 at 18:30 Glucose (Glutose) 15 gm Q15M PRN PO DECREASED GLUCOSE; Start 11/06/18 at 18:30 Glucose (Glutose) 22.5 gm Q15M PRN PO DECREASED GLUCOSE; Start 11/06/18 at 18:30 Dextrose (D50w Syringe) 25 ml Q15M PRN IV DECREASED GLUCOSE; Start 11/06/18 at 18:30 Dextrose (D50w Syringe) 50 ml Q15M PRN IV DECREASED GLUCOSE; Start 11/06/18 at 18:30 Glucagon (Glucagen) 1 mg Q15M PRN IM DECREASED GLUCOSE; Start 11/06/18 at 18:30 Glucose (Glutose) 15 gm Q15M PRN BUCCAL DECREASED GLUCOSE; Start 11/06/18 at 18:30 Ondansetron HCl (Zofran Inj) 4 mg Q6H PRN IV NAUSEA/VOMITING Last administered on 11/08/18 13:24; Admin Dose 4 MG; Start 11/06/18 at 18:30 Acetaminophen (Tylenol Tab) 650 mg Q6H PRN PO .PAIN 1-3 OR TEMP Last administered on 11/06/18 20:27; Admin Dose 650 MG; Start 11/06/18 at 18:30 Acetaminophen/ Hydrocodone Bitart ([place] (5/325)) 1 tab Q6H PRN PO .MOD PAIN 4- 6 Last administered on 11/07/18 04:51; Admin Dose 1 TAB; Start 11/06/18 at 18:30 Docusate Sodium (Colace) 100 mg Q12H PRN PO .CONSTIPATION; Start 11/06/18 at 18:30 Bisacodyl (Dulcolax) 5 mg DAILY PRN PO .CONSTIPATION; Start 11/06/18 at 18:30 Zolpidem Tartrate (Ambien) 5 mg QHS PRN PO .INSOMNIA; Start 11/06/18 at 18:30 Famotidine (Pepcid) 20 mg Q12 PO Last administered on 11/09/18at 09:03; Admin Dose 20 MG; Start 11/06/18 at 21:00 Sodium Chloride (NS) -To prime the dialy... DIRECTED FOR HD PRN IV HD; Start 11/07/18 at 12:00 Hydralazine HCl (Apresoline) 25 mg Q8 PO Last administered on 11/09/18at 13:22; Admin Dose 25 MG; Start 11/08/18 at 22:00 Hydralazine HCl (Apresoline) 10 mg Q4H PRN IV ELEVATED BLOOD PRESSURE; Start 11/09/18 at 09:00 Assessment/Plan Assessment/Plan (Daily) 1.s/p Right mastectomy for invasive ductal breast ca 2.ESRD on HD, MWF 3.Htn 4.Anemia sec to Ckd 5.AODM 6.Hyperkalemia p: -HD am -Monitor lytes -Monitor bp -Further recs per surgeon JUAN FRANCISCO UP MD Nov 09, 2018 14:09
--- NOTE | 2018-11-09 16:20 | RADRPT ---
Echocardiogram Report Patient Name: MARVA ALBARRANPatient ID: [id number] : 1950 (68y 4m)Study Date: 11/09/2018 8:42:08 AM Gender: FAccession #: [id number] Tech: LE Location: Ref.Physician: ABIGAIL GONZÁLES Height(Cm): BSA: Weight(Kg): Quality: GoodAccount #: Procedures: Echocardiographic Report: Transthoracic echocardiogram with complete 2D, M-Mode, and doppler examination. Indications: Dizziness. Measurements: 2D/M Mode Doppler Measurement Value Normal Range Measurement Value Normal Range LVIDd 2D 4.8 [ 3.8 - 5.2 ] cm ELAINE Vmax 1.7 [ 2.0 - 4.0 ] cm2 LVIDs 2D 3.3 [ 2.2 - 3.5 ] cm AV Mean Elieser 1.1 [ 70.0 - 90.0 ] cm/sec LVPWd 2D 1.1 [ 0.6 - 0.9 ] cm AV Mean PG 6.0 [ 2.0 - 4.0 ] mmHg IVSd 2D 1.1 [ 0.6 - 0.9 ] cm AV Peak Elieser 1.6 [ 100.0 - 170.0 ] cm/sec IVS/LVPW 2D 1.0 ratio AV Peak PG 10.0 [ 2.0 - 9.0 ] mmHg LVOT Diam 1.9 [ 2.1 - 2.5 ] cm AV VTI 39.8 cm LVOT Area 2.8 cm2 LVOT Peak Elieser 1.0 [ 70.0 - 110.0 ] cm/sec LVOT Peak PG 4.0 [ 2.0 - 6.0 ] mmHg MV E Peak Elieser 0.9 [ 60.0 - 130.0 ] cm/sec MV A Peak Elieser 0.8 [ 100.0 - 120.0 ] cm/sec MV E/A 1.0 [ 0.8 - 1.5 ] ratio MV Decel Time 338 [ 104 - 258 ] msec Lat E` Elieser 0.1 [ 10.0 - 15.0 ] cm/sec Med E` Elieser 0.0 cm/sec MV E/A 1.0 [ 0.8 - 1.5 ] ratio TR Peak Elieser 2.6 [ 100.0 - 280.0 ] cm/sec TR Peak PG 27.0 mmHg PV Peak Elieser 1.0 [ 40.0 - 80.0 ] cm/sec PV Peak PG 4.0 mmHg Findings: Left Ventricle: Normal left ventricular systolic function. Normal left ventricular cavity size. Normal left ventricular wall thickness. Ejection fraction is visually estimated at 60-65 %. Tissue Doppler/Mitral Doppler indices are consistent with pseudonormalization with mildly elevated left atrial pressure (Stage II diastolic dysfunction). Right Ventricle: Normal right ventricular size. Normal right ventricular systolic function. Left Atrium: Upper limit of normal left atrial size. Right Atrium: The right atrium is normal in size. Atrial Septum: Normal atrial septum. Mitral Valve: Normal appearance of the mitral valve. Mild mitral valve regurgitation. Aortic Valve: Normal appearance of the aortic valve. No significant aortic stenosis or insufficiency. Aortic sclerosis without significant stenosis. Tricuspid Valve: Normal appearance of the tricuspid valve. Right ventricular systolic pressure is consistent with mild pulmonary hypertension. Estimated peak PA systolic pressure 30 mmHg. There is mild tricuspid regurgitation. Pulmonic Valve: Normal pulmonic valve appearance. Pericardium: Normal pericardium with no significant pericardial effusion. Aorta: Normal aortic root. IVC: Normal size and normal respiratory collapse consistent with normal right atrial pressure. Conclusions: Normal left ventricular systolic function. Normal left ventricular cavity size. Normal left ventricular wall thickness. Ejection fraction is visually estimated at 60-65 %. Tissue Doppler/Mitral Doppler indices are consistent with pseudonormalization with mildly elevated left atrial pressure (Stage II diastolic dysfunction). Normal appearance of the mitral valve. Mild mitral valve regurgitation. Normal appearance of the tricuspid valve. Right ventricular systolic pressure is consistent with mild pulmonary hypertension. Estimated peak PA systolic pressure 30 mmHg. There is mild tricuspid regurgitation. Electronically Signed By: Abigail Gonzáles 2018-11-09 16:19:14 PDT
--- NOTE | 2018-11-09 16:23 | CONS ---
Assessment/Plan Assessment/Plan Hospital Course (Demo Recall) IMPRESSION: 1. Hypertension-labile. ? component of pain from PONCE 2. Dizziness. Rule out cardiac etiology, rule out cardiac arrhythmia. Currently, the patient is lying flat in bed at this time with stable blood pressures. Unclear if side effect of anesthesia or if the patient has any history of baseline headaches. 3. Congestive heart failure with preserved EF - diastolic, acute on chronic. 4. Abnormal electrocardiogram with inferior Q's. 5. Status post right partial mastectomy for breast carcinoma. 6. Episodes of nausea and vomiting. 7. Anemia. 8. End-stage renal disease, on hemodialysis. 9. Presyncopal episode this am-to be transferred to tele- trop neg x 3. NL EF by echo this admit with no sig valve abnl 10.hyperkalemia-improved 11. Bradycardiia- to 50's only with stable to elevated BP Recc: -On tele at this time -Continue coreg/hydralazine and follow BP closely -HD as patient will comply -ok for d/c from cardiac standpoint with outpatient f/u Consultation Date/Type/Reason Admit Date/Time Nov 06, 2018 at 13:46 Initial Consult Date 11/07/18 Type of Consult Cardiology Reason for Consultation presyncope Requesting Provider: SAWYER FOOTE MD Date/Time of Note DATE: 11/09/18 TIME: 16:20 Exam/Review of Systems Vital Signs Vitals Vital Signs Date Temp Pulse Resp B/P (MAP) Pulse Ox O2 O2 Flow FiO2 Time Delivery Rate 11/09/18 98.7 53 18 124/64 98 15:15 (84) 11/08/18 Room Air 17:33 11/06/18 2.0 16:45 Intake and Output 11/08/18 11/08/18 11/09/18 1515:00 23:00 07:00 IntakeIntake Total 0 ml 960 ml OutputOutput Total 22 ml 25 ml BalanceBalance 0 ml 938 ml -25 ml Exam Exam Review of Systems: CONSTITUTIONAL: No fevers, chills. PULMONARY: No sob CARDIOVASCULAR: No chest pain/palpitations GASTROINTESTINAL: No nausea/vomiting. GENITOURINARY: No hematuria/dysuria. MUSCULOSKELETAL: No myagias/arthalgias. PSYCHIATRIC: The patient denies depression. NEUROLOGIC: resolved dizziness Constitutional: alert Psych: no complaints Head: normocephalic ENMT: mucosa pink and moist Neck: supple, jvd (9 cm water) Respiratory: clear to auscultation Cardiovascular: regular rate and rhythm Gastrointestinal: soft Musculoskeletal: muscle tone (normal) Extremities: edema (none) Neurological: other (No focal deficits) Labs Result Diagram: 11/09/18 0641 11/09/18 0641 Results 24hrs Laboratory Tests Test 11/08/18 18:08 11/08/18 21:16 11/09/18 06:41 11/09/18 06:42 Bedside Glucose 115 114 White Blood Count 5.6 Red Blood Count 3.05 L Hemoglobin 10.0 L Hematocrit 31.3 L Mean Corpuscular 102.6 H Volume Mean Corpuscular 32.8 Hemoglobin Mean Corpuscular 31.9 L Hemoglobin Concent Red Cell 14.5 Distribution Width Platelet Count 158 Mean Platelet Volume 10.3 Immature 0.500 H Granulocytes % Neutrophils % 54.0 Lymphocytes % 32.4 Monocytes % 9.5 Eosinophils % 3.2 Basophils % 0.4 Nucleated Red Blood 0.0 Cells % Immature 0.030 Granulocytes # Neutrophils # 3.0 Lymphocytes # 1.8 Monocytes # 0.5 Eosinophils # 0.2 Basophils # 0.0 Nucleated Red Blood 0.0 Cells # Sodium Level 142 Potassium Level 5.0 Chloride Level 102 Carbon Dioxide Level 27 Anion Gap 13 Blood Urea Nitrogen 38 #H Creatinine 7.16 H Est Glomerular 6 L Filtrat Rate mL/min Glucose Level 120 Calcium Level 10.1 Phosphorus Level 5.4 H Magnesium Level 2.4 Troponin I 0.020 Test 11/09/18 08:03 11/09/18 12:02 Bedside Glucose 125 152 Medications Medications Current Medications Morphine Sulfate (morphine) 2 mg Q1H PRN IV PAIN; Start 11/06/18 at 14:00 Carvedilol (Coreg) 6.25 mg BID PO Last administered on 11/09/18at 12:35; Admin Dose 6.25 MG; Start 11/06/18 at 21:00 Sevelamer Carbonate (Renvela) 0.8 gm WITH MEALS PO Last administered on 11/09/18at 12:29; Admin Dose 0.8 GM; Start 11/06/18 at 17:55 Bumetanide (Bumex) 2 mg DAILY PO Last administered on 11/09/18at 09:03; Admin Dose 2 MG; Start 11/07/18 at 09:00 Diagnostic Test (Pha) (Accu-Chek) 1 ea 02 XX ; Start 11/07/18 at 02:00 Insulin Glargine (Lantus) 27 units DAILY@2000 SC Last administered on 11/08/18 22:06; Admin Dose 27 UNITS; Start 11/06/18 at 20:00 Insulin Aspart (Novolog Insulin Pen) 9 unit WITH MEALS SC Last administered on 11/09/18 12:07; Admin Dose 9 UNIT; Start 11/06/18 at 17:55 Insulin Aspart (Novolog Insulin Pen) NOVOLOG *MILD* ALGORITHM WITH MEALS BEDTIME SC Last administered on 11/09/18 12:07; Admin Dose 1 UNIT; Start 11/06/18 at 17:55 Miscellaneous Information 1 ea NOTE XX ; Start 11/06/18 at 18:30 Glucose (Glutose) 15 gm Q15M PRN PO DECREASED GLUCOSE; Start 11/06/18 at 18:30 Glucose (Glutose) 22.5 gm Q15M PRN PO DECREASED GLUCOSE; Start 11/06/18 at 18:30 Dextrose (D50w Syringe) 25 ml Q15M PRN IV DECREASED GLUCOSE; Start 11/06/18 at 18:30 Dextrose (D50w Syringe) 50 ml Q15M PRN IV DECREASED GLUCOSE; Start 11/06/18 at 18:30 Glucagon (Glucagen) 1 mg Q15M PRN IM DECREASED GLUCOSE; Start 11/06/18 at 18:30 Glucose (Glutose) 15 gm Q15M PRN BUCCAL DECREASED GLUCOSE; Start 11/06/18 at 18:30 Ondansetron HCl (Zofran Inj) 4 mg Q6H PRN IV NAUSEA/VOMITING Last administered on 11/08/18 13:24; Admin Dose 4 MG; Start 11/06/18 at 18:30 Acetaminophen (Tylenol Tab) 650 mg Q6H PRN PO .PAIN 1-3 OR TEMP Last administered on 11/06/18 20:27; Admin Dose 650 MG; Start 11/06/18 at 18:30 Acetaminophen/ Hydrocodone Bitart ([place] (5/325)) 1 tab Q6H PRN PO .MOD PAIN 4- 6 Last administered on 3/8/19at 04:51; Admin Dose 1 TAB; Start 11/06/18 at 18:30 Docusate Sodium (Colace) 100 mg Q12H PRN PO .CONSTIPATION; Start 11/06/18 at 18:30 Bisacodyl (Dulcolax) 5 mg DAILY PRN PO .CONSTIPATION; Start 11/06/18 at 18:30 Zolpidem Tartrate (Ambien) 5 mg QHS PRN PO .INSOMNIA; Start 11/06/18 at 18:30 Famotidine (Pepcid) 20 mg Q12 PO Last administered on 11/09/18at 09:03; Admin Dose 20 MG; Start 11/06/18 at 21:00 Sodium Chloride (NS) -To prime the dialy... DIRECTED FOR HD PRN IV HD; Start 11/07/18 at 12:00 Hydralazine HCl (Apresoline) 25 mg Q8 PO Last administered on 11/09/18at 13:22; Admin Dose 25 MG; Start 11/08/18 at 22:00 Hydralazine HCl (Apresoline) 10 mg Q4H PRN IV ELEVATED BLOOD PRESSURE; Start 11/09/18 at 09:00 ABIGAIL GALVAN Nov 09, 2018 16:23
--- NOTE | 2018-11-09 16:26 | PN ---
DATE: 11/09/2018 Postop day #3, status post right breast partial mastectomy and axillary dissection for cancer. SUBJECTIVE: She feels much better today. No nausea, no vomiting, no dizziness. INPUT AND OUTPUT: The Vaibhav-Hadley drain has drained totally 45 mL in past 24 hours, serosanguineous. CONSULTATIONS: The patient has been seen by emergency department clinician, drafter civil and internal medicine. PHYSICAL EXAMINATION: HEART: Regular bradycardia. LUNGS: Clear. ABDOMEN: Soft. SKIN: Dressing is intact. EXTREMITIES: Has full range of motion of the right upper extremity. PLAN: The patient from surgical point of view can be discharged home, to be followed by Dr. Geller in the office. Apparently, the patient has made an appointment 2 weeks from now to see Dr. Geller in the office in regard to the breast operation. From other medical point of view including hyperkalemia and increased creatinine, end-stage renal disease, bradycardia, she has been seen and evaluated by other colleagues and overall, they have decided to discharge the patient home to have hemodialysis done tomorrow, Saturday, as it has been her schedule 3 times a week on Mondays, Wednesdays and Fridays as before. The patient's was given instruction for care of the Vaibhav-Hadley drains to record them and to take the papers with him or with her to Dr. Geller' office when they go to Dr. Geller' office. Dictated By: OCTAVIA GARCIA MD PS/NTS Conf#: [id number] DID#: [id number] CC: SAWYER FOOTE MD; DANTE GELLER MD;*EndCC* MTDD
== END 2018-11-09 18:30 | disposition home or self-care (01) ==
LOC: SDS 07:22 → INTOOBSV 13:46 → REC 13:46 → MS1 15:35 → TEL 11-08 17:17
PROVIDERS: ADMIT Surgery Surgical Oncology; ATTEND Surgery Surgical Oncology
DX: C50.211 Malignant neoplasm of upper-inner quadrant of right female breast (principal); Z17.0 Estrogen receptor positive status [ER+]; R55 Syncope and collapse; I13.2 Hypertensive heart and chronic kidney disease with heart failure and with stage 5 chronic kidney disease, or end stage renal disease; E11.22 Type 2 diabetes mellitus with diabetic chronic kidney disease; N18.6 End stage renal disease; I50.9 Heart failure, unspecified; Z99.2 Dependence on renal dialysis; Z79.4 Long term (current) use of insulin; M89.9 Disorder of bone, unspecified; D63.1 Anemia in chronic kidney disease
CPT/HCPCS: 19301; 38525; 38900; 80048; 80061; 82550; 82553; 82962; 83036; 83735; 84100; 84132; 84443; 84484; 85025; 86706; 87340; 88307; 90935; 93005; 93306; G0378; J0690; J1815; J2175; J2405; J2765; Q9968; 99217